=== PATIENT | male | born 1980 | race Caucasian/White ===

== ENCOUNTER 2023-07-26 03:14 | Inpatient (IN) | payer MEDICAID, OTHER, SELFPAY ==
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
--- NOTE | ~2023-07-26 | CT_ITS ---
EXAMINATION: CT CERVICAL SPINE WITHOUT CONTRAST CLINICAL INFORMATION: Subtle lucency at base of odontoid. COMPARISON: Cervical spine radiographs 07/28/2023. TECHNIQUE: Program Manager Environmental Planning images were obtained. CT imaging of the cervical spine was performed without contrast. Data was reformatted into multiplanar images at the acquisition workstation. This CT examination was performed using dose optimization techniques as appropriate, variously including the following: *Automated exposure control *Adjustment of mA and/or kV according to patient size (this includes techniques or standardized protocols for targeted exams where dose is matched to indication/reason for exam; i.e. extremities or head) *Use of iterative reconstruction technique DLP: 332 mGy-cm FINDINGS: Alignment is normal. Vertebral body heights are preserved. No acute cervical spine fracture. No abnormal prevertebral soft tissue swelling. There is no canal compromise. No cord compression. No bony neuroforaminal encroachment. Grossly no pathologically enlarged cervical lymph nodes. Minimal pleural-parenchymal scarring is visualized at the apices of both lungs. CT/CT cervical spine wo IV con IMPRESSION: Unremarkable cervical spine CT.
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
[2023-07-26] MEDS: Nicotine Polacrilex 2 MG GUM 4 MG BUCCAL ×4 (04:30→18:17)
--- NOTE | 2023-07-26 04:30 | PC.NURSE ---
PT requested only 1 nicotine gum, 2mg.
--- NOTE | 2023-07-26 04:46 | PC.ADMIT ---
PT is a 43 year old male with past medical and psychiatric history with ongoing depression and ETOH use, unknown to unit, admitted on CV at 0323 from [facility] on a stretcher accompanied by security and EMS. PT is A+O x4, calm and cooperative during admission and skin/contraband check. PT was brought from [place] to the ED in [place] by his brother Nilton, PT is currently homeless. 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 Per report PT made a suicidal gesture holding kitchen scissors stating he was going to cut or stab self. PT callie is Maggi per report. PT has a diagnose of MDD and ETOH use disorder. Given PT's continual ETOH use, Maggi plans to Section 35 the PT after discharge. PT placed on 15 minute safety checks, belongings charted and locked in closet, treatment plan and safety tool initiated. PT is a current 3 pack/day smoker. PT reports he has been drinking for past 4 years and his children are in foster care. PT also reports smoking marijuana. PT had a Cat Scan at prior hospital, which revealed gastritis, negative for cirrhosis due to PT C/O vomiting blood upon arrival to ED. PT currently resting in bed with eyes closed, will continue to monitor.
[2023-07-26 04:47] VITALS: BMI 19.7
[2023-07-26 06:25] VITALS: BP 122/68; PULSE 80; RESP 16; TEMP 36.8; O2SAT 100
--- NOTE | 2023-07-26 06:42 | PC.NURSE ---
PT T 98.2, P 80, R 16, O2RA 100, BP 122/68, at 0625, PT vomitted in BR toilet x1 at 0645, PT is presenting as anxious, agitated, disorganized.
[2023-07-26 07:53] LABS: Alanine Aminotransferase 13 U/L (0-40); Albumin Level 4.2 g/dL (3.5-5.0); Alkaline Phosphatase 99 U/L (39-117); Anion Gap 12 (12-20); Aspartate Amino Transferase 27 U/L (5-37); Bilirubin Total 0.4 mg/dL (0.0-1.0); Blood Urea Nitrogen 15 mg/dL (9-16); Calcium 9.3 mg/dL (8.4-10.2); Carbon Dioxide 26 mmol/L (22-29); Chloride 105 mmol/L (96-108); Creatinine Clr Calc Pharmacy 112.2; Estimated Glomerular Filt Rate > 60; Glucose Fasting 89 mg/dL (60-99); Potassium 4.1 mmol/L (3.3-5.1); Sodium 139 mmol/L (135-145); Total Protein 7.4 g/dL (6.5-8.0)
[2023-07-26] MEDS: Nicotine 21 MG PATCH.TD24 TRANSDERMA (08:17)
[2023-07-26] MEDS: Folic Acid 1 MG TABLET PO (08:17)
[2023-07-26] MEDS: Thiamine HCL 100 MG TABLET PO (08:17)
[2023-07-26] MEDS: Multivitamin TABLET 1 TAB PO (08:17)
[2023-07-26] MEDS: LORazepam 1 MG TABLET PO (08:23)
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
[2023-07-26] MEDS: hydrOXYzine HCL 25 MG TABLET PO ×2 (11:56→19:46)
[2023-07-26] MEDS: Lidocaine 4 % Patch ADH..PATCH 1 PATCH TRANSDERMA (11:57)
[2023-07-26] MEDS: Famotidine 20 MG TABLET PO ×2 (11:57→21:52)
[2023-07-26 12:10] VITALS: BP 146/98; PULSE 89; RESP 18; O2SAT 99
[2023-07-26] MEDS: Bacitracin Oint 14 GM TUBE 1 APPL TOPICAL (14:51)
[2023-07-26] MEDS: Gabapentin 300 MG CAPSULE PO ×2 (16:00→19:46)
[2023-07-26 18:00] VITALS: BP 140/95; PULSE 80; TEMP 2.6; TEMP 36.7
[2023-07-26] MEDS: traZODone HCL 50 MG TABLET PO (21:52)
[2023-07-26] MEDS: lamoTRIgine 25 MG TABLET PO (21:53)
[2023-07-27] MEDS: Nicotine Polacrilex 2 MG GUM 4 MG BUCCAL (06:27)
[2023-07-27] MEDS: Lidocaine 4 % Patch ADH..PATCH 1 PATCH TRANSDERMA ×3 (06:27→12:39)
[2023-07-27] MEDS: LORazepam 1 MG TABLET PO ×3 (06:27→19:50)
[2023-07-27 08:06] VITALS: BP 137/95; PULSE 99; RESP 16; TEMP 36.4; O2SAT 100
[2023-07-27] MEDS: Multivitamin TABLET 1 TAB PO (08:16)
[2023-07-27] MEDS: Nicotine 21 MG PATCH.TD24 TRANSDERMA (08:16)
[2023-07-27] MEDS: Famotidine 20 MG TABLET PO ×2 (08:16→21:57)
[2023-07-27] MEDS: Gabapentin 300 MG CAPSULE PO ×4 (08:17→21:56)
[2023-07-27] MEDS: Thiamine HCL 100 MG TABLET PO (08:17)
[2023-07-27] MEDS: Folic Acid 1 MG TABLET PO (08:17)
[2023-07-27] MEDS: Bacitracin Oint 14 GM TUBE 1 APPL TOPICAL (08:46)
--- NOTE | 2023-07-27 12:24 | P.PNPSI_ITS ---
Subjective Subjective Date of Service: 07/27/23 Reason For Visit: Vomiting blood/SI Interim History: met with pt; discussed with team pt feeling better; mood better and says SI resolved. 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 aks if gabapentin can be increased in frequency. Mental Status Exam Mental Status Exam Narrative: Pt is alert and oriented; behavior is cooperative, friendly and calm; patient is not in distress; dressed in casual attire, clean shaven, showered; mood is described as better and affect congruent, brighter; eye contact appropriate; Speech is normal rate, volume and prosody and not pressured; no psychomotor agitation/retardation present; thought process is organized and goal directed; Thought content is on lifes struggles; otherwise pertinent to relevant topics and without any delusional content, paranoid ideations or grandiosity; denies any SI/HI. There is no evidence of perceptual disturbance. Patients insight and judgment impaired. Diagnostics Vital Signs (24Hr): Vital Signs - 24 hr 07/26/23 18:00 07/27/23 08:06 Temperature 36.7 F L 97.5 F Pulse Rate 80 99 Respiratory Rate 16 Blood Pressure 140/95 H 137/95 H Pulse Oximetry 100 Oxygen Delivery Method Room Air BMI result Body Mass Index 19.7 Labs 07/26/23 07:18 Labs: Laboratory Results - last 48 hr 07/26/23 07:18 Sodium 139 Potassium 4.1 Chloride 105 Carbon Dioxide 26 Anion Gap 12 BUN 15 Creatinine 0.74 Estim Creat Clear Calc 112.2 Estimated GFR > 60 Fasting Glucose 89 Calcium 9.3 Total Bilirubin 0.4 AST 27 ALT 13 Alkaline Phosphatase 99 Total Protein 7.4 Albumin 4.2 Medications Medications Current Medications Al Hydroxide/Mg Hydroxide (Magnesium Hydrox/Alum Hydrox 30 Ml Oral.Susp) 30 ml PO Q6H PRN PRN Reason: Heartburn/Nausea Bacitracin (Bacitracin Oint 14 Gm Tube) 1 appl TOPICAL BID [facility]; Protocol Last Admin: 07/26/23 22:01 Dose: Not Given Famotidine (Famotidine 20 Mg Tablet) 20 mg PO BID [facility] Last Admin: 07/27/23 08:16 Dose: 20 mg Folic Acid (Folic Acid 1 Mg Tablet) 1 mg PO DAILY [facility] Last Admin: 07/27/23 08:17 Dose: 1 mg Gabapentin (Gabapentin 300 Mg Capsule) 300 mg PO TID [facility] Last Admin: 07/27/23 08:17 Dose: 300 mg Hydroxyzine HCl (Hydroxyzine Hcl 25 Mg Tablet) 25 mg PO Q6H PRN PRN Reason: Anxiety Last Admin: 07/26/23 19:46 Dose: 25 mg Lamotrigine (Lamotrigine 25 Mg Tablet) 25 mg PO BEDTIME [facility] Last Admin: 07/26/23 21:53 Dose: 25 mg Lidocaine (Lidocaine 4 % Patch Adh..Patch) 1 patch TRANSDERMA DAILY PRN; Protocol PRN Reason: back pain Last Admin: 07/27/23 06:27 Dose: 1 patch Lorazepam (Lorazepam 1 Mg Tablet) 1 mg PO Q2H PRN PRN Reason: CIWA 6-10 Last Admin: 07/27/23 06:27 Dose: 1 mg Lorazepam (Lorazepam 1 Mg Tablet) 2 mg PO Q2H PRN PRN Reason: CIWA 11 and above Magnesium Hydroxide (Milk Of Magnesia 30 Ml Oral.Susp) 30 ml PO DAILY PRN PRN Reason: Constipation Multivitamins/Vitamin C (Multivitamin Tablet) 1 tab PO DAILY [facility] Last Admin: 07/27/23 08:16 Dose: 1 tab Nicotine (Nicotine 21 Mg Patch.Td24) 21 mg TRANSDERMA DAILY PRN PRN Reason: smoking cessation Last Admin: 07/27/23 08:16 Dose: 21 mg Nicotine Polacrilex (Nicotine Polacrilex 2 Mg Gum) 4 mg BUCCAL Q2H PRN PRN Reason: Nicotine Cravings Last Admin: 07/27/23 06:27 Dose: 4 mg Olanzapine (Olanzapine 5 Mg Tablet) 5 mg PO TID PRN PRN Reason: agitation Thiamine HCl (Thiamine Hcl 100 Mg Tablet) 100 mg PO DAILY [facility] Last Admin: 07/27/23 08:17 Dose: 100 mg Trazodone HCl (Trazodone Hcl 50 Mg Tablet) 50 mg PO BEDTIME MRX1 PRN PRN Reason: Insomnia Last Admin: 07/26/23 21:52 Dose: 50 mg Allergies Allergies Allergy/AdvReac Type Severity Reaction Status Date / Time acetaminophen AdvReac Unknown Verified 07/26/23 03:50 Assessment & Plan Assessment & Plan (1) MDD (major depressive disorder), recurrent episode, moderate: Status: Acute Code(s): F33.1 - Major depressive disorder, recurrent, moderate (2) Cervicalgia: Status: Acute Code(s): M54.2 - Cervicalgia (3) Right hand pain: Status: Acute Code(s): M79.641 - Pain in right hand Plan Patient is a 43-year-old male with history of depression, alcohol abuse/dependence, who presents for making suicidal statement with a knife in the face of ongoing depression. 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 Patient was on the phone with his brother and niece and made a suicidal comment about cutting himself with scissors. His brother immediately drove up there to help him get treatment at a dual diagnosis program in [place], however upon arriving the bed was no longer available so patient came to the emergency room. He said while here, getting detoxed, he knew that he needed help or might do something unsafe. Patient reports history of hypomanic episodes that last for about 3 days during which time he needs almost no sleep, as talking faster, has lots of energy, spends lots of money he does not really have and on things he does not need and has elevated libido; he says he can only get himself to sleep by starting to drink heavily. Patient also has bouts of depression. Patient has some OCD type symptoms where he frequently counts different things that he sees; he says it can be distracting to conversations and is annoying but does not really limit his function all that much. Discussed diagnosis and possible bipolar disorder and patient agrees to trial of Lamictal as it can help with depression, anxiety, hypomania and OCD; discussed risks/side effects which patient understands and agrees to continue with this medicine. Also discussed gabapentin which he has been on before, for musculoskeletal pain as patient has chronic lower back and neck pain and this also can help with alcohol cravings. hospital course: 07/27 pt feeling better; mood better and says SI resolved. 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 aks if gabapentin can be increased in frequency. Plan: CV Q 15 minute checks CIWA with Ativan p.r.n. Famotidine 20 mg b.i.d. for possible gastritis continue Lamictal 25 mg q.h.s. for combination of mood stability, depression, OCD, anxiety increase to gabapentin 300 mg q.i.d. for musculoskeletal pain and alcohol cravings Patient educated on: diagnosis, medication risk/benefits and substance abuse Informed Consent: understands Reason for continued inpatient stay Substantial Risk for: rapid decompensation Time Spent With Patient Time: Total time managing care of this patient today ____ minutes.
[2023-07-27] MEDS: Naltrexone HCl 50 MG TABLET 25 MG PO (12:35)
[2023-07-27] MEDS: hydrOXYzine HCL 25 MG TABLET PO ×2 (12:37→20:08)
[2023-07-27] MEDS: Ibuprofen 600 MG TABLET PO (16:22)
[2023-07-27] MEDS: traZODone HCL 50 MG TABLET PO (21:56)
[2023-07-27] MEDS: lamoTRIgine 25 MG TABLET PO (21:57)
[2023-07-27 22:00] VITALS: BP 167/94; PULSE 72; RESP 18; TEMP 36.9; O2SAT 100
[2023-07-27 22:25] VITALS: BP 161/94; PULSE 68; RESP 18
[2023-07-27] MEDS: LORazepam 1 MG TABLET 2 MG PO (22:35)
[2023-07-27 23:02] VITALS: BP 145/91; PULSE 69; RESP 18
[2023-07-28 06:00] VITALS: BP 157/88; PULSE 109; TEMP 36.1; O2SAT 100
[2023-07-28] MEDS: LORazepam 1 MG TABLET PO ×2 (06:37→11:05)
[2023-07-28] MEDS: Nicotine Polacrilex 2 MG GUM 4 MG BUCCAL ×2 (06:37→22:07)
[2023-07-28 08:20] LABS: Alanine Aminotransferase 16 U/L (0-40); Albumin Level 4.6 g/dL (3.5-5.0); Alkaline Phosphatase 98 U/L (39-117); Aspartate Amino Transferase 25 U/L (5-37); Bilirubin Direct 0.2 mg/dL (0.0-0.5); Bilirubin Total 0.4 mg/dL (0.0-1.0); Total Protein 8.2 g/dL (6.5-8.0)
[2023-07-28] MEDS: Famotidine 20 MG TABLET PO ×2 (08:40→20:48)
[2023-07-28] MEDS: Multivitamin TABLET 1 TAB PO (08:40)
[2023-07-28] MEDS: Gabapentin 300 MG CAPSULE PO ×4 (08:40→20:48)
[2023-07-28] MEDS: Thiamine HCL 100 MG TABLET PO (08:40)
[2023-07-28] MEDS: Naltrexone HCl 50 MG TABLET 25 MG PO (08:40)
[2023-07-28] MEDS: Folic Acid 1 MG TABLET PO (08:40)
--- NOTE | 2023-07-28 10:16 | HO.PSYCHPN ---
Subjective Subjective Date of Service: 07/28/23 Reason For Visit: Vomiting blood/SI Subjective Notes: Conditional Voluntary Healthcare Proxy: No Guardianship: No Medical Problems Affecting Mental Status: No Interim History: Pt discussed his history and medical concerns. He hopes to enter a program. Review of pain-neck, back, foot- xrays/CAT ordered. Pt will need OP referral to podiatry upon discharge as he reports L Foot with Hammar Toe. Hopes for admit to [facility]. States family has a connection to help him to get admitted. Medication Compliance: Yes Side effects from medications: No Attending Groups: Intermittent Review of Systems Acute medical concerns: No Medical Review of Systems: unchanged Review of Systems Reports neck pain Musculoskeletal: Reports back pain and Reports neck pain Mental Status Exam Mental Status Exam Patient Appearance: Appropriate Patient Orientation: Person, Place, Time and Situation Level of Consciousness: Alert Patient Behavior: Talkative Mood Description: Anxious Affect Description: Anxious Patient Cognition Impaired: No Ability to Follow Directions: Good Speech Pattern: Appropriate and Spontaneous Speech Memory Description: Intact and Episodic Impaired Hallucinations: None Delusions: Not Present Thought Process: Rumination Thought Content: positive for Perseveration Depressive Symptoms: Increased Anxiety and Thoughts of /Suicide (denies) Judgement: Good Diagnostics Vital Signs (24Hr): Vital Signs - 24 hr 07/27/23 22:00 07/27/23 22:25 07/27/23 23:02 Temperature 98.4 F Pulse Rate 72 68 69 Respiratory Rate 18 18 18 Blood Pressure 167/94 H 161/94 H 145/91 H Pulse Oximetry 100 Oxygen Delivery Method Room Air 07/28/23 06:00 Temperature 96.9 F Pulse Rate 109 H Respiratory Rate Blood Pressure 157/88 H Pulse Oximetry 100 Oxygen Delivery Method Room Air BMI result Body Mass Index 19.7 Labs 07/26/23 07:18 Labs: Laboratory Results - last 48 hr 07/28/23 07:53 Total Bilirubin 0.4 Direct Bilirubin 0.2 AST 25 ALT 16 Alkaline Phosphatase 98 Total Protein 8.2 H Albumin 4.6 Imaging Radiology Impressions: ITS Impressions Hand X-Ray 07/26/23 11:31 IMPRESSION: 1. No radiographic evidence of acute fracture. 2. Hardware across the fifth metacarpal are intact. Medications Medications Current Medications Al Hydroxide/Mg Hydroxide (Magnesium Hydrox/Alum Hydrox 30 Ml Oral.Susp) 30 ml PO Q6H PRN PRN Reason: Heartburn/Nausea Bacitracin (Bacitracin Oint 14 Gm Tube) 1 appl TOPICAL BID [facility]; Protocol Last Admin: 07/27/23 22:05 Dose: Not Given Famotidine (Famotidine 20 Mg Tablet) 20 mg PO BID [facility] Last Admin: 07/28/23 08:40 Dose: 20 mg Folic Acid (Folic Acid 1 Mg Tablet) 1 mg PO DAILY [facility] Last Admin: 07/28/23 08:40 Dose: 1 mg Gabapentin (Gabapentin 300 Mg Capsule) 300 mg PO QID [facility] Last Admin: 07/28/23 08:40 Dose: 300 mg Hydroxyzine HCl (Hydroxyzine Hcl 25 Mg Tablet) 25 mg PO Q6H PRN PRN Reason: Anxiety Last Admin: 07/27/23 20:08 Dose: 25 mg Ibuprofen (Ibuprofen 600 Mg Tablet) 600 mg PO Q8H PRN PRN Reason: Pain, Mild (Pain Scale 1-3) Last Admin: 07/27/23 16:22 Dose: 600 mg Lamotrigine (Lamotrigine 25 Mg Tablet) 25 mg PO BEDTIME [facility] Last Admin: 07/27/23 21:57 Dose: 25 mg Lidocaine (Lidocaine 4 % Patch Adh..Patch) 1 patch TRANSDERMA DAILY PRN; Protocol PRN Reason: back pain Last Admin: 07/27/23 06:27 Dose: 1 patch Lidocaine (Lidocaine 4 % Patch Adh..Patch) 1 patch TRANSDERMA DAILY [facility]; Protocol Lorazepam (Lorazepam 1 Mg Tablet) 1 mg PO Q2H PRN PRN Reason: CIWA 6-10 Last Admin: 07/28/23 06:37 Dose: 1 mg Lorazepam (Lorazepam 1 Mg Tablet) 2 mg PO Q2H PRN PRN Reason: CIWA 11 and above Last Admin: 07/27/23 22:35 Dose: 2 mg Magnesium Hydroxide (Milk Of Magnesia 30 Ml Oral.Susp) 30 ml PO DAILY PRN PRN Reason: Constipation Multivitamins/Vitamin C (Multivitamin Tablet) 1 tab PO DAILY [facility] Last Admin: 07/28/23 08:40 Dose: 1 tab Naltrexone HCl (Naltrexone Hcl 50 Mg Tablet) 25 mg PO DAILY [facility] Last Admin: 07/28/23 08:40 Dose: 25 mg Nicotine (Nicotine 21 Mg Patch.Td24) 21 mg TRANSDERMA DAILY PRN PRN Reason: smoking cessation Last Admin: 07/27/23 08:16 Dose: 21 mg Nicotine Polacrilex (Nicotine Polacrilex 2 Mg Gum) 4 mg BUCCAL Q2H PRN PRN Reason: Nicotine Cravings Last Admin: 07/28/23 06:37 Dose: 4 mg Thiamine HCl (Thiamine Hcl 100 Mg Tablet) 100 mg PO DAILY [facility] Last Admin: 07/28/23 08:40 Dose: 100 mg Trazodone HCl (Trazodone Hcl 50 Mg Tablet) 50 mg PO BEDTIME MRX1 PRN PRN Reason: Insomnia Last Admin: 07/27/23 21:56 Dose: 50 mg Allergies Allergies Allergy/AdvReac Type Severity Reaction Status Date / Time acetaminophen AdvReac Unknown Verified 07/26/23 03:50 Assessment & Plan Assessment & Plan (1) MDD (major depressive disorder), recurrent episode, moderate: Status: Acute Code(s): F33.1 - Major depressive disorder, recurrent, moderate (2) Cervicalgia: Status: Acute Code(s): M54.2 - Cervicalgia (3) Right hand pain: Status: Acute Code(s): M79.641 - Pain in right hand Plan Patient is a 43-year-old male with history of depression, alcohol abuse/dependence, who presents for making suicidal statement with a knife in the face of ongoing depression. 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 Patient was on the phone with his brother and niece and made a suicidal comment about cutting himself with scissors. His brother immediately drove up there to help him get treatment at a dual diagnosis program in [place], however upon arriving the bed was no longer available so patient came to the emergency room. He said while here, getting detoxed, he knew that he needed help or might do something unsafe. Patient reports history of hypomanic episodes that last for about 3 days during which time he needs almost no sleep, as talking faster, has lots of energy, spends lots of money he does not really have and on things he does not need and has elevated libido; he says he can only get himself to sleep by starting to drink heavily. Patient also has bouts of depression. Patient has some OCD type symptoms where he frequently counts different things that he sees; he says it can be distracting to conversations and is annoying but does not really limit his function all that much. Discussed diagnosis and possible bipolar disorder and patient agrees to trial of Lamictal as it can help with depression, anxiety, hypomania and OCD; discussed risks/side effects which patient understands and agrees to continue with this medicine. Also discussed gabapentin which he has been on before, for musculoskeletal pain as patient has chronic lower back and neck pain and this also can help with alcohol cravings. hospital course: 07/27 pt feeling better; mood better and says SI resolved. 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 aks if gabapentin can be increased in frequency. 07/28 Continue current plan and regime Reports insomnia- Increase Trazodone at hs to 100 mg Cervical/Lumbar xrays Consulted hospitalist regarding Hammar Toe, pt will need OP podiatry scheduled. Plan: CV Q 15 minute checks CIWA with Ativan p.r.n. Famotidine 20 mg b.i.d. for possible gastritis continue Lamictal 25 mg q.h.s. for combination of mood stability, depression, OCD, anxiety increase to gabapentin 300 mg q.i.d. for musculoskeletal pain and alcohol cravings Informed Consent: understands Reason for continued inpatient stay Substantial Risk for: rapid decompensation Time Spent With Patient Time: Total time managing care of this patient today ____ minutes.
[2023-07-28] MEDS: Lidocaine 4 % Patch ADH..PATCH 1 PATCH TRANSDERMA ×2 (10:57)
[2023-07-28] MEDS: Nicotine 21 MG PATCH.TD24 TRANSDERMA (10:58)
[2023-07-28] MEDS: Ibuprofen 600 MG TABLET PO ×2 (11:05→19:05)
[2023-07-28] MEDS: Bacitracin Oint 14 GM TUBE 1 APPL TOPICAL (11:09)
[2023-07-28] MEDS: hydrOXYzine HCL 25 MG TABLET PO (13:36)
[2023-07-28] MEDS: LORazepam 1 MG TABLET 2 MG PO ×3 (17:04→22:07)
[2023-07-28 19:00] VITALS: BP 147/100; PULSE 94; RESP 16; TEMP 37.3; O2SAT 100
[2023-07-28] MEDS: cloNIDine HCL 0.1 MG TABLET PO (19:27)
[2023-07-28] MEDS: traZODone HCL 100 MG TABLET PO (20:48)
[2023-07-28] MEDS: lamoTRIgine 25 MG TABLET PO (20:48)
[2023-07-29] MEDS: LORazepam 1 MG TABLET PO ×3 (05:00→14:34)
[2023-07-29] MEDS: Nicotine Polacrilex 2 MG GUM 4 MG BUCCAL (05:00)
[2023-07-29] MEDS: Ibuprofen 600 MG TABLET PO ×2 (05:22→14:34)
[2023-07-29 08:00] VITALS: BP 131/97; PULSE 112; RESP 18; TEMP 36.4; O2SAT 98
[2023-07-29] MEDS: Folic Acid 1 MG TABLET PO (08:17)
[2023-07-29] MEDS: Famotidine 20 MG TABLET PO ×2 (08:17→21:09)
[2023-07-29] MEDS: Gabapentin 300 MG CAPSULE PO ×4 (08:17→21:09)
[2023-07-29] MEDS: Thiamine HCL 100 MG TABLET PO (08:17)
[2023-07-29] MEDS: Multivitamin TABLET 1 TAB PO (08:17)
[2023-07-29] MEDS: Naltrexone HCl 50 MG TABLET 25 MG PO (08:20)
[2023-07-29] MEDS: Nicotine 21 MG PATCH.TD24 TRANSDERMA (10:24)
[2023-07-29] MEDS: Lidocaine 4 % Patch ADH..PATCH 1 PATCH TRANSDERMA ×2 (10:25)
[2023-07-29] MEDS: hydrOXYzine HCL 25 MG TABLET PO ×2 (13:00→21:11)
--- NOTE | 2023-07-29 13:52 | HO.PSYCHPN ---
Subjective Subjective Date of Service: 07/29/23 Reason For Visit: Vomiting blood/SI Subjective Notes: Conditional Voluntary Healthcare Proxy: No Guardianship: No Medical Problems Affecting Mental Status: No Interim History: I think I drink to manage depression, decrease pain, mask anxiety. Yes, I have been manic. Talked about feeling stuck in his head, overthinking, fixated on current family situation. Worried that daughters will go to foster care. Their mom is unable to care for them. Focus on his placement. Niece Maggi Verdugo [phone] has been connected with [facility] and he believes she can assist him in admission. Not too accepting of [facility] as I dont really get along with men . senior living goal is to return to [place] to be with his children. Medication Compliance: Yes Side effects from medications: No Attending Groups: Intermittent Review of Systems Acute medical concerns: No Medical Review of Systems: unchanged Review of Systems Review of Systems Yes all other systems are reviewed and are negative Mental Status Exam Mental Status Exam Patient Appearance: Appropriate Patient Orientation: Person, Place, Time and Situation Level of Consciousness: Alert Patient Behavior: Talkative Mood Description: Anxious Affect Description: Anxious Patient Cognition Impaired: No Ability to Follow Directions: Good Speech Pattern: Appropriate and Spontaneous Speech Memory Description: Intact and Episodic Impaired Hallucinations: None Delusions: Not Present Thought Process: Rumination Thought Content: positive for Perseveration Depressive Symptoms: Increased Anxiety and Thoughts of /Suicide (denies) Judgement: Good Diagnostics Vital Signs (24Hr): Vital Signs - 24 hr 07/28/23 19:00 07/29/23 08:00 Temperature 99.1 F 97.5 F Pulse Rate 94 112 H Respiratory Rate 16 18 Blood Pressure 147/100 H 131/97 H Pulse Oximetry 100 98 Oxygen Delivery Method Room Air Room Air BMI result Body Mass Index 19.7 Labs 07/26/23 07:18 Labs: Laboratory Results - last 48 hr 07/28/23 07:53 Total Bilirubin 0.4 Direct Bilirubin 0.2 AST 25 ALT 16 Alkaline Phosphatase 98 Total Protein 8.2 H Albumin 4.6 Imaging Radiology Impressions: ITS Impressions Hand X-Ray 07/26/23 11:31 IMPRESSION: 1. No radiographic evidence of acute fracture. 2. Hardware across the fifth metacarpal are intact. Cervical Spine X-Ray 07/28/23 15:00 IMPRESSION: Subtle lucency involving the left aspect of the base of the odontoid process on the open mouth view. A nondisplaced fracture is not excluded. A cervical spine CT would provide for diagnostic assessment. Lumbar Spine X-Ray 07/28/23 15:00 IMPRESSION: 1. No acute bony abnormality. 2. Degenerative disc disease at L4-L5. 3. Slight retrolisthesis of L4 with respect to L5. Soft Tissue Neck X-Ray 07/28/23 15:00 IMPRESSION: 1. Question soft tissue swelling of the patient's chin. 2. No bony abnormality of the cervical spine. Head CT 07/28/23 15:20 IMPRESSION: No acute intracranial abnormality. Cervical Spine CT 07/29/23 10:09 IMPRESSION: Unremarkable cervical spine CT. Medications Medications Current Medications Al Hydroxide/Mg Hydroxide (Magnesium Hydrox/Alum Hydrox 30 Ml Oral.Susp) 30 ml PO Q6H PRN PRN Reason: Heartburn/Nausea Bacitracin (Bacitracin Oint 14 Gm Tube) 1 appl TOPICAL BID [facility]; Protocol Last Admin: 07/29/23 08:39 Dose: Not Given Famotidine (Famotidine 20 Mg Tablet) 20 mg PO BID [facility] Last Admin: 07/29/23 08:17 Dose: 20 mg Folic Acid (Folic Acid 1 Mg Tablet) 1 mg PO DAILY [facility] Last Admin: 07/29/23 08:17 Dose: 1 mg Gabapentin (Gabapentin 300 Mg Capsule) 300 mg PO QID [facility] Last Admin: 07/29/23 12:58 Dose: 300 mg Hydroxyzine HCl (Hydroxyzine Hcl 25 Mg Tablet) 25 mg PO Q6H PRN PRN Reason: Anxiety Last Admin: 07/29/23 13:00 Dose: 25 mg Ibuprofen (Ibuprofen 600 Mg Tablet) 600 mg PO Q8H PRN PRN Reason: Pain, Mild (Pain Scale 1-3) Last Admin: 07/29/23 05:22 Dose: 600 mg Lamotrigine (Lamotrigine 25 Mg Tablet) 25 mg PO BEDTIME [facility] Last Admin: 07/28/23 20:48 Dose: 25 mg Lidocaine (Lidocaine 4 % Patch Adh..Patch) 1 patch TRANSDERMA DAILY [facility]N; Protocol PRN Reason: back pain Last Admin: 07/29/23 10:25 Dose: 1 patch Lidocaine (Lidocaine 4 % Patch Adh..Patch) 1 patch TRANSDERMA DAILY [facility]; Protocol Last Admin: 07/29/23 10:25 Dose: 1 patch Lorazepam (Lorazepam 1 Mg Tablet) 1 mg PO Q2H PRN PRN Reason: CIWA 6-10 Last Admin: 07/29/23 10:23 Dose: 1 mg Lorazepam (Lorazepam 1 Mg Tablet) 2 mg PO Q2H PRN PRN Reason: CIWA 11 and above Last Admin: 07/28/23 22:07 Dose: 2 mg Magnesium Hydroxide (Milk Of Magnesia 30 Ml Oral.Susp) 30 ml PO DAILY PRN PRN Reason: Constipation Multivitamins/Vitamin C (Multivitamin Tablet) 1 tab PO DAILY [facility] Last Admin: 07/29/23 08:17 Dose: 1 tab Naltrexone HCl (Naltrexone Hcl 50 Mg Tablet) 25 mg PO DAILY [facility] Last Admin: 07/29/23 08:20 Dose: 25 mg Nicotine (Nicotine 21 Mg Patch.Td24) 21 mg TRANSDERMA DAILY PRN PRN Reason: smoking cessation Last Admin: 07/29/23 10:24 Dose: 21 mg Nicotine Polacrilex (Nicotine Polacrilex 2 Mg Gum) 4 mg BUCCAL Q2H PRN PRN Reason: Nicotine Cravings Last Admin: 07/29/23 05:00 Dose: 4 mg Thiamine HCl (Thiamine Hcl 100 Mg Tablet) 100 mg PO DAILY [facility] Last Admin: 07/29/23 08:17 Dose: 100 mg Trazodone HCl (Trazodone Hcl 100 Mg Tablet) 100 mg PO BEDTIME [facility] Last Admin: 07/28/23 20:48 Dose: 100 mg Allergies Allergies Allergy/AdvReac Type Severity Reaction Status Date / Time acetaminophen AdvReac Unknown Verified 07/26/23 03:50 Assessment & Plan Assessment & Plan (1) MDD (major depressive disorder), recurrent episode, moderate: Status: Acute Code(s): F33.1 - Major depressive disorder, recurrent, moderate (2) Cervicalgia: Status: Acute Code(s): M54.2 - Cervicalgia (3) Right hand pain: Status: Acute Code(s): M79.641 - Pain in right hand Plan Patient is a 43-year-old male with history of depression, alcohol abuse/dependence, who presents for making suicidal statement with a knife in the face of ongoing depression. 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 Patient was on the phone with his brother and niece and made a suicidal comment about cutting himself with scissors. His brother immediately drove up there to help him get treatment at a dual diagnosis program in [place], however upon arriving the bed was no longer available so patient came to the emergency room. He said while here, getting detoxed, he knew that he needed help or might do something unsafe. Patient reports history of hypomanic episodes that last for about 3 days during which time he needs almost no sleep, as talking faster, has lots of energy, spends lots of money he does not really have and on things he does not need and has elevated libido; he says he can only get himself to sleep by starting to drink heavily. Patient also has bouts of depression. Patient has some OCD type symptoms where he frequently counts different things that he sees; he says it can be distracting to conversations and is annoying but does not really limit his function all that much. Discussed diagnosis and possible bipolar disorder and patient agrees to trial of Lamictal as it can help with depression, anxiety, hypomania and OCD; discussed risks/side effects which patient understands and agrees to continue with this medicine. Also discussed gabapentin which he has been on before, for musculoskeletal pain as patient has chronic lower back and neck pain and this also can help with alcohol cravings. hospital course: 07/27 pt feeling better; mood better and says SI resolved. 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 aks if gabapentin can be increased in frequency. 07/28 Continue current plan and regime Reports insomnia- Increase Trazodone at hs to 100 mg Cervical/Lumbar xrays Consulted hospitalist regarding Hammar Toe, pt will need OP podiatry scheduled. 07/29 Continue tx Plan: CV Q 15 minute checks CIWA with Ativan p.r.n. Famotidine 20 mg b.i.d. for possible gastritis continue Lamictal 25 mg q.h.s. for combination of mood stability, depression, OCD, anxiety increase to gabapentin 300 mg q.i.d. for musculoskeletal pain and alcohol cravings Patient educated on: therapeutic strategies Informed Consent: understands Reason for continued inpatient stay Substantial Risk for: rapid decompensation Time Spent With Patient Time: Total time managing care of this patient today ____ minutes.
[2023-07-29] MEDS: QUEtiapine Fumarate 50 MG TABLET PO (15:56)
[2023-07-29 18:00] VITALS: BP 141/91; PULSE 87; RESP 18; TEMP 36.4; O2SAT 100
[2023-07-29] MEDS: traZODone HCL 100 MG TABLET PO (21:09)
[2023-07-29] MEDS: lamoTRIgine 25 MG TABLET PO (21:09)
[2023-07-30] MEDS: Ibuprofen 600 MG TABLET PO ×3 (03:29→20:08)
[2023-07-30] MEDS: Nicotine Polacrilex 2 MG GUM 4 MG BUCCAL ×3 (03:29→20:08)
[2023-07-30] MEDS: hydrOXYzine HCL 25 MG TABLET PO (03:29)
[2023-07-30 08:00] VITALS: BP 135/83; PULSE 74; RESP 16; TEMP 36.3; O2SAT 100
[2023-07-30] MEDS: Lidocaine 4 % Patch ADH..PATCH 1 PATCH TRANSDERMA ×2 (08:28)
[2023-07-30] MEDS: Naltrexone HCl 50 MG TABLET 25 MG PO (08:30)
[2023-07-30] MEDS: Multivitamin TABLET 1 TAB PO (08:30)
[2023-07-30] MEDS: Folic Acid 1 MG TABLET PO (08:30)
[2023-07-30] MEDS: Gabapentin 300 MG CAPSULE PO ×4 (08:30→20:03)
[2023-07-30] MEDS: DULoxetine HCl 20 MG CAPSULE.DR PO (08:30)
[2023-07-30] MEDS: Thiamine HCL 100 MG TABLET PO (08:30)
[2023-07-30] MEDS: Famotidine 20 MG TABLET PO ×2 (08:30→20:03)
[2023-07-30] MEDS: Nicotine 21 MG PATCH.TD24 TRANSDERMA (08:38)
[2023-07-30] MEDS: LORazepam 1 MG TABLET PO ×2 (08:38→12:16)
[2023-07-30] MEDS: Bacitracin Oint 14 GM TUBE 1 APPL TOPICAL (08:42)
[2023-07-30] MEDS: QUEtiapine Fumarate 100 MG TABLET PO (13:59)
[2023-07-30] MEDS: chlorproMAZINE HCl 25 MG TABLET 50 MG PO ×3 (14:37→20:04)
[2023-07-30 18:00] VITALS: BP 137/90; PULSE 85; RESP 16; TEMP 36.6; O2SAT 100
--- NOTE | 2023-07-30 19:04 | P.PNPSI_ITS ---
Subjective Subjective Date of Service: 07/30/23 Reason For Visit: Vomiting blood/SI Subjective Notes: Conditional Voluntary Healthcare Proxy: No Guardianship: No Medical Problems Affecting Mental Status: No Interim History: Very difficult day. Pt learned that his daughter made a suicide attempt via cutting in hospital. Pt believes this is because her mother did not reach out to her on her birthday. Chlorpromazine schedule added. Upset, angry, labile. Allowing team support. Medication Compliance: Yes Side effects from medications: No Attending Groups: Intermittent Review of Systems Acute medical concerns: No Medical Review of Systems: unchanged Review of Systems Review of Systems Yes all other systems are reviewed and are negative Mental Status Exam Mental Status Exam Patient Appearance: Appropriate Patient Orientation: Person, Place, Time and Situation Level of Consciousness: Alert Patient Behavior: Talkative Mood Description: Depressed, Anxious and Labile Affect Description: Anxious and Labile Patient Cognition Impaired: No Ability to Follow Directions: Good Speech Pattern: Appropriate and Spontaneous Speech Memory Description: Intact and Episodic Impaired Hallucinations: None Delusions: Not Present Thought Process: Rumination Thought Content: positive for Perseveration Depressive Symptoms: Increased Anxiety and Thoughts of /Suicide (denies) Judgement: Good Diagnostics Vital Signs (24Hr): Vital Signs - 24 hr 07/30/23 08:00 07/30/23 18:00 Temperature 97.3 F 97.8 F Pulse Rate 74 85 Respiratory Rate 16 16 Blood Pressure 135/83 137/90 H Pulse Oximetry 100 100 Oxygen Delivery Method Room Air Room Air BMI result Body Mass Index 19.7 Labs 07/26/23 07:18 Imaging Radiology Impressions: ITS Impressions Hand X-Ray 07/26/23 11:31 IMPRESSION: 1. No radiographic evidence of acute fracture. 2. Hardware across the fifth metacarpal are intact. Cervical Spine X-Ray 07/28/23 15:00 IMPRESSION: Subtle lucency involving the left aspect of the base of the odontoid process on the open mouth view. A nondisplaced fracture is not excluded. A cervical spine CT would provide for diagnostic assessment. Lumbar Spine X-Ray 07/28/23 15:00 IMPRESSION: 1. No acute bony abnormality. 2. Degenerative disc disease at L4-L5. 3. Slight retrolisthesis of L4 with respect to L5. Soft Tissue Neck X-Ray 07/28/23 15:00 IMPRESSION: 1. Question soft tissue swelling of the patient's chin. 2. No bony abnormality of the cervical spine. Head CT 07/28/23 15:20 IMPRESSION: No acute intracranial abnormality. Cervical Spine CT 07/29/23 10:09 IMPRESSION: Unremarkable cervical spine CT. Medications Medications Current Medications Al Hydroxide/Mg Hydroxide (Magnesium Hydrox/Alum Hydrox 30 Ml Oral.Susp) 30 ml PO Q6H PRN PRN Reason: Heartburn/Nausea Bacitracin (Bacitracin Oint 14 Gm Tube) 1 appl TOPICAL BID [facility]; Protocol Last Admin: 07/30/23 08:42 Dose: 1 appl Chlorpromazine HCl (Chlorpromazine Hcl 25 Mg Tablet) 50 mg PO QID [facility] Last Admin: 07/30/23 16:52 Dose: 50 mg Chlorpromazine HCl (Chlorpromazine Hcl 100 Mg Tablet) 100 mg PO BID PRN PRN Reason: severe agitation,violence Famotidine (Famotidine 20 Mg Tablet) 20 mg PO BID [facility] Last Admin: 07/30/23 08:30 Dose: 20 mg Folic Acid (Folic Acid 1 Mg Tablet) 1 mg PO DAILY [facility] Last Admin: 07/30/23 08:30 Dose: 1 mg Gabapentin (Gabapentin 300 Mg Capsule) 300 mg PO QID [facility] Last Admin: 07/30/23 16:51 Dose: 300 mg Hydroxyzine HCl (Hydroxyzine Hcl 25 Mg Tablet) 25 mg PO Q6H PRN PRN Reason: Anxiety Last Admin: 07/30/23 03:29 Dose: 25 mg Ibuprofen (Ibuprofen 600 Mg Tablet) 600 mg PO Q8H PRN PRN Reason: Pain, Mild (Pain Scale 1-3) Last Admin: 07/30/23 12:15 Dose: 600 mg Lamotrigine (Lamotrigine 25 Mg Tablet) 25 mg PO BEDTIME [facility] Last Admin: 07/29/23 21:09 Dose: 25 mg Lidocaine (Lidocaine 4 % Patch Adh..Patch) 1 patch TRANSDERMA DAILY PRN; Protocol PRN Reason: back pain Last Admin: 07/30/23 08:28 Dose: 1 patch Lidocaine (Lidocaine 4 % Patch Adh..Patch) 1 patch TRANSDERMA DAILY [facility]; Protocol Last Admin: 07/30/23 08:28 Dose: 1 patch Lorazepam (Lorazepam 1 Mg Tablet) 1 mg PO Q2H PRN PRN Reason: CIWA 6-10 Last Admin: 07/30/23 12:16 Dose: 1 mg Lorazepam (Lorazepam 1 Mg Tablet) 2 mg PO Q2H PRN PRN Reason: CIWA 11 and above Last Admin: 07/28/23 22:07 Dose: 2 mg Magnesium Hydroxide (Milk Of Magnesia 30 Ml Oral.Susp) 30 ml PO DAILY PRN PRN Reason: Constipation Multivitamins/Vitamin C (Multivitamin Tablet) 1 tab PO DAILY [facility] Last Admin: 07/30/23 08:30 Dose: 1 tab Naltrexone HCl (Naltrexone Hcl 50 Mg Tablet) 25 mg PO DAILY [facility] Last Admin: 07/30/23 08:30 Dose: 25 mg Nicotine (Nicotine 21 Mg Patch.Td24) 21 mg TRANSDERMA DAILY PRN PRN Reason: smoking cessation Last Admin: 07/30/23 08:38 Dose: 21 mg Nicotine Polacrilex (Nicotine Polacrilex 2 Mg Gum) 4 mg BUCCAL Q2H PRN PRN Reason: Nicotine Cravings Last Admin: 07/30/23 08:31 Dose: 4 mg Thiamine HCl (Thiamine Hcl 100 Mg Tablet) 100 mg PO DAILY [facility] Last Admin: 07/30/23 08:30 Dose: 100 mg Trazodone HCl (Trazodone Hcl 100 Mg Tablet) 100 mg PO BEDTIME [facility] Last Admin: 07/29/23 21:09 Dose: 100 mg Allergies Allergies Allergy/AdvReac Type Severity Reaction Status Date / Time acetaminophen AdvReac Unknown Verified 07/26/23 03:50 Assessment & Plan Assessment & Plan (1) MDD (major depressive disorder), recurrent episode, moderate: Status: Acute Code(s): F33.1 - Major depressive disorder, recurrent, moderate (2) Cervicalgia: Status: Acute Code(s): M54.2 - Cervicalgia (3) Right hand pain: Status: Acute Code(s): M79.641 - Pain in right hand Plan Patient is a 43-year-old male with history of depression, alcohol abuse/dependence, who presents for making suicidal statement with a knife in the face of ongoing depression. Patient has been living in [place], sometimes sleeping in a camper, tent, sometimes in a hotel, working construction but drinking heavily, a case of beer at least a day and having depression. Patient was on the phone with his brother and niece and made a suicidal comment about cutting himself with scissors. His brother immediately drove up there to help him get treatment at a dual diagnosis program in [place], however upon arriving the bed was no longer available so patient came to the emergency room. He said while here, getting detoxed, he knew that he needed help or might do something unsafe. Patient reports history of hypomanic episodes that last for about 3 days during which time he needs almost no sleep, as talking faster, has lots of energy, spends lots of money he does not really have and on things he does not need and has elevated libido; he says he can only get himself to sleep by starting to drink heavily. Patient also has bouts of depression. Patient has some OCD type symptoms where he frequently counts different things that he sees; he says it can be distracting to conversations and is annoying but does not really limit his function all that much. Discussed diagnosis and possible bipolar disorder and patient agrees to trial of Lamictal as it can help with depression, anxiety, hypomania and OCD; discussed risks/side effects which patient understands and agrees to continue with this medicine. Also discussed gabapentin which he has been on before, for musculoskeletal pain as patient has chronic lower back and neck pain and this also can help with alcohol cravings. hospital course: 07/27 pt feeling better; mood better and says SI resolved. Wants to get back on Naltrexone (though not vivitrol); showed check writer salesperson his left hammer toe and wants help getting a PCP. aks if gabapentin can be increased in frequency. 07/28 Continue current plan and regime Reports insomnia- Increase Trazodone at hs to 100 mg Cervical/Lumbar xrays Consulted hospitalist regarding Hammar Toe, pt will need OP podiatry scheduled. 07/30- Chlorpromazine 50 mg qid Plan: CV Q 15 minute checks CIWA with Ativan p.r.n. Famotidine 20 mg b.i.d. for possible gastritis continue Lamictal 25 mg q.h.s. for combination of mood stability, depression, OCD, anxiety increase to gabapentin 300 mg q.i.d. for musculoskeletal pain and alcohol cravings Patient educated on: medication risk/benefits and therapeutic strategies Informed Consent: understands Reason for continued inpatient stay Substantial Risk for: rapid decompensation Time Spent With Patient Time: Total time managing care of this patient today ____ minutes.
[2023-07-30] MEDS: traZODone HCL 100 MG TABLET PO (20:03)
[2023-07-30] MEDS: lamoTRIgine 25 MG TABLET PO (20:03)
[2023-07-31] MEDS: hydrOXYzine HCL 25 MG TABLET PO (02:39)
[2023-07-31] MEDS: chlorproMAZINE HCl 100 MG TABLET PO (02:40)
[2023-07-31 08:00] VITALS: BP 125/77; PULSE 97; RESP 16; TEMP 36.3; O2SAT 99
[2023-07-31] MEDS: Naltrexone HCl 50 MG TABLET 25 MG PO (08:05)
[2023-07-31] MEDS: Nicotine Polacrilex 2 MG GUM 4 MG BUCCAL ×3 (08:05→23:47)
[2023-07-31] MEDS: Famotidine 20 MG TABLET PO ×2 (08:05→20:35)
[2023-07-31] MEDS: chlorproMAZINE HCl 25 MG TABLET 50 MG PO ×4 (08:05→20:35)
[2023-07-31] MEDS: Thiamine HCL 100 MG TABLET PO (08:06)
[2023-07-31] MEDS: Ibuprofen 600 MG TABLET PO ×3 (08:06→23:44)
[2023-07-31] MEDS: Folic Acid 1 MG TABLET PO (08:06)
[2023-07-31] MEDS: Gabapentin 300 MG CAPSULE PO ×4 (08:06→20:35)
[2023-07-31] MEDS: Multivitamin TABLET 1 TAB PO (08:06)
[2023-07-31] MEDS: Lidocaine 4 % Patch ADH..PATCH 1 PATCH TRANSDERMA ×2 (09:27→09:28)
[2023-07-31] MEDS: Nicotine 21 MG PATCH.TD24 TRANSDERMA (09:30)
[2023-07-31] MEDS: Bacitracin Oint 14 GM TUBE 1 APPL TOPICAL (09:31)
[2023-07-31] MEDS: LORazepam 1 MG TABLET PO (09:44)
[2023-07-31 12:01] VITALS: BMI 21.1
[2023-07-31] MEDS: Benztropine Mesylate 0.5 MG TABLET PO ×2 (12:12→20:34)
--- NOTE | 2023-07-31 15:26 | P.PNPSI_ITS ---
Subjective Subjective Date of Service: 07/31/23 Reason For Visit: Vomiting blood/SI Subjective Notes: Conditional Voluntary Healthcare Proxy: No Guardianship: No Medical Problems Affecting Mental Status: No Interim History: Talked with sister in law in [place] who reached out to pt's daughter. Daughter called and spoke briefly with pt. He reports she hung up on him when he asked her what happened. CPZ helpful with some hand tremor. Dosage decreased, Benztropine added with results Focused on recovery and program admission. Medication Compliance: Yes Side effects from medications: No Attending Groups: Intermittent Review of Systems Acute medical concerns: No Medical Review of Systems: unchanged Review of Systems Review of Systems Yes all other systems are reviewed and are negative Mental Status Exam Mental Status Exam Patient Appearance: Appropriate Patient Orientation: Person, Place, Time and Situation Level of Consciousness: Alert Patient Behavior: Talkative Mood Description: Depressed, Anxious and Labile Affect Description: Anxious and Labile Patient Cognition Impaired: No Ability to Follow Directions: Good Speech Pattern: Appropriate and Spontaneous Speech Memory Description: Intact and Episodic Impaired Hallucinations: None Delusions: Not Present Thought Process: Rumination Thought Content: positive for Perseveration Depressive Symptoms: Increased Anxiety and Thoughts of /Suicide (denies) Judgement: Good Diagnostics Vital Signs (24Hr): Vital Signs - 24 hr 07/30/23 18:00 07/31/23 08:00 Temperature 97.8 F 97.4 F Pulse Rate 85 97 Respiratory Rate 16 16 Blood Pressure 137/90 H 125/77 Pulse Oximetry 100 99 Oxygen Delivery Method Room Air Room Air BMI result Body Mass Index 21.1 Labs 07/26/23 07:18 Imaging Radiology Impressions: ITS Impressions Hand X-Ray 07/26/23 11:31 IMPRESSION: 1. No radiographic evidence of acute fracture. 2. Hardware across the fifth metacarpal are intact. Cervical Spine X-Ray 07/28/23 15:00 IMPRESSION: Subtle lucency involving the left aspect of the base of the odontoid process on the open mouth view. A nondisplaced fracture is not excluded. A cervical spine CT would provide for diagnostic assessment. Lumbar Spine X-Ray 07/28/23 15:00 IMPRESSION: 1. No acute bony abnormality. 2. Degenerative disc disease at L4-L5. 3. Slight retrolisthesis of L4 with respect to L5. Soft Tissue Neck X-Ray 07/28/23 15:00 IMPRESSION: 1. Question soft tissue swelling of the patient's chin. 2. No bony abnormality of the cervical spine. Head CT 07/28/23 15:20 IMPRESSION: No acute intracranial abnormality. Cervical Spine CT 07/29/23 10:09 IMPRESSION: Unremarkable cervical spine CT. Medications Medications Current Medications Al Hydroxide/Mg Hydroxide (Magnesium Hydrox/Alum Hydrox 30 Ml Oral.Susp) 30 ml PO Q6H PRN PRN Reason: Heartburn/Nausea Bacitracin (Bacitracin Oint 14 Gm Tube) 1 appl TOPICAL BID [facility]; Protocol Last Admin: 07/31/23 09:31 Dose: 1 appl Benztropine Mesylate (Benztropine Mesylate 0.5 Mg Tablet) 0.5 mg PO BID [facility] Chlorpromazine HCl (Chlorpromazine Hcl 25 Mg Tablet) 50 mg PO QID [facility] Last Admin: 07/31/23 12:12 Dose: 50 mg Chlorpromazine HCl (Chlorpromazine Hcl 100 Mg Tablet) 100 mg PO BID PRN PRN Reason: severe agitation,violence Last Admin: 07/31/23 02:40 Dose: 100 mg Famotidine (Famotidine 20 Mg Tablet) 20 mg PO BID [facility] Last Admin: 07/31/23 08:05 Dose: 20 mg Folic Acid (Folic Acid 1 Mg Tablet) 1 mg PO DAILY [facility] Last Admin: 07/31/23 08:06 Dose: 1 mg Gabapentin (Gabapentin 300 Mg Capsule) 300 mg PO QID [facility] Last Admin: 07/31/23 12:12 Dose: 300 mg Hydroxyzine HCl (Hydroxyzine Hcl 25 Mg Tablet) 25 mg PO Q6H PRN PRN Reason: Anxiety Last Admin: 07/31/23 02:39 Dose: 25 mg Ibuprofen (Ibuprofen 600 Mg Tablet) 600 mg PO Q8H PRN PRN Reason: Pain, Mild (Pain Scale 1-3) Last Admin: 07/31/23 08:06 Dose: 600 mg Lamotrigine (Lamotrigine 25 Mg Tablet) 25 mg PO BEDTIME [facility] Last Admin: 07/30/23 20:03 Dose: 25 mg Lidocaine (Lidocaine 4 % Patch Adh..Patch) 1 patch TRANSDERMA DAILY PRN; Protocol PRN Reason: back pain Last Admin: 07/31/23 09:28 Dose: 1 patch Lidocaine (Lidocaine 4 % Patch Adh..Patch) 1 patch TRANSDERMA DAILY [facility]; Protocol Last Admin: 07/31/23 09:27 Dose: 1 patch Lorazepam (Lorazepam 1 Mg Tablet) 1 mg PO Q2H PRN PRN Reason: CIWA 6-10 Last Admin: 07/31/23 09:44 Dose: 1 mg Lorazepam (Lorazepam 1 Mg Tablet) 2 mg PO Q2H PRN PRN Reason: CIWA 11 and above Last Admin: 07/28/23 22:07 Dose: 2 mg Magnesium Hydroxide (Milk Of Magnesia 30 Ml Oral.Susp) 30 ml PO DAILY PRN PRN Reason: Constipation Multivitamins/Vitamin C (Multivitamin Tablet) 1 tab PO DAILY [facility] Last Admin: 07/31/23 08:06 Dose: 1 tab Naltrexone HCl (Naltrexone Hcl 50 Mg Tablet) 25 mg PO DAILY [facility] Last Admin: 07/31/23 08:05 Dose: 25 mg Nicotine (Nicotine 21 Mg Patch.Td24) 21 mg TRANSDERMA DAILY PRN PRN Reason: smoking cessation Last Admin: 07/31/23 09:30 Dose: 21 mg Nicotine Polacrilex (Nicotine Polacrilex 2 Mg Gum) 4 mg BUCCAL Q2H PRN PRN Reason: Nicotine Cravings Last Admin: 07/31/23 08:05 Dose: 4 mg Thiamine HCl (Thiamine Hcl 100 Mg Tablet) 100 mg PO DAILY [facility] Last Admin: 07/31/23 08:06 Dose: 100 mg Trazodone HCl (Trazodone Hcl 100 Mg Tablet) 100 mg PO BEDTIME [facility] Last Admin: 07/30/23 20:03 Dose: 100 mg Allergies Allergies Allergy/AdvReac Type Severity Reaction Status Date / Time acetaminophen AdvReac Unknown Verified 07/26/23 03:50 Assessment & Plan Assessment & Plan (1) MDD (major depressive disorder), recurrent episode, moderate: Status: Acute Code(s): F33.1 - Major depressive disorder, recurrent, moderate (2) Cervicalgia: Status: Acute Code(s): M54.2 - Cervicalgia (3) Right hand pain: Status: Acute Code(s): M79.641 - Pain in right hand Plan Patient is a 43-year-old male with history of depression, alcohol abuse/dependence, who presents for making suicidal statement with a knife in the face of ongoing depression. 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 Patient was on the phone with his brother and niece and made a suicidal comment about cutting himself with scissors. His brother immediately drove up there to help him get treatment at a dual diagnosis program in [place], however upon arriving the bed was no longer available so patient came to the emergency room. He said while here, getting detoxed, he knew that he needed help or might do something unsafe. Patient reports history of hypomanic episodes that last for about 3 days during which time he needs almost no sleep, as talking faster, has lots of energy, spends lots of money he does not really have and on things he does not need and has elevated libido; he says he can only get himself to sleep by starting to drink heavily. Patient also has bouts of depression. Patient has some OCD type symptoms where he frequently counts different things that he sees; he says it can be distracting to conversations and is annoying but does not really limit his function all that much. Discussed diagnosis and possible bipolar disorder and patient agrees to trial of Lamictal as it can help with depression, anxiety, hypomania and OCD; discussed risks/side effects which patient understands and agrees to continue with this medicine. Also discussed gabapentin which he has been on before, for musculoskeletal pain as patient has chronic lower back and neck pain and this also can help with alcohol cravings. hospital course: 07/27 pt feeling better; mood better and says SI resolved. 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 aks if gabapentin can be increased in frequency. 07/28 Continue current plan and regime Reports insomnia- Increase Trazodone at hs to 100 mg Cervical/Lumbar xrays Consulted hospitalist regarding Hammar Toe, pt will need OP podiatry scheduled. 07/31/23 Decrease CPZ to 50 mg bid Benztropine 0.5 mg bid Plan: CV Q 15 minute checks CIWA with Ativan p.r.n. Famotidine 20 mg b.i.d. for possible gastritis continue Lamictal 25 mg q.h.s. for combination of mood stability, depression, OCD, anxiety increase to gabapentin 300 mg q.i.d. for musculoskeletal pain and alcohol cravings Patient educated on: medication risk/benefits and therapeutic strategies Informed Consent: understands Reason for continued inpatient stay Substantial Risk for: rapid decompensation Time Spent With Patient Time: Total time managing care of this patient today ____ minutes.
[2023-07-31 18:00] VITALS: BP 132/97; PULSE 92; RESP 18; TEMP 36.3; O2SAT 99
[2023-07-31] MEDS: traZODone HCL 100 MG TABLET PO (20:34)
[2023-07-31] MEDS: lamoTRIgine 25 MG TABLET PO (20:35)
--- NOTE | 2023-08-01 | ECG_ITS ---
Test Reason : rule out QTc prolongation Blood Pressure : / mmHG Vent. Rate : 078 BPM Atrial Rate : 078 BPM P-R Int : 178 ms QRS Dur : 092 ms QT Int : 376 ms P-R-T Axes : 069 055 049 degrees QTc Int : 428 ms Normal sinus rhythm Normal ECG No previous ECGs available Referred By: Bozena Whiteside Electronically Signed By:Mauri Watkins
[2023-08-01] MEDS: hydrOXYzine HCL 25 MG TABLET PO (06:16)
[2023-08-01 08:01] VITALS: BP 149/90; PULSE 99; RESP 16; TEMP 36.2; O2SAT 99
[2023-08-01] MEDS: chlorproMAZINE HCl 25 MG TABLET 50 MG PO ×2 (08:22→21:08)
[2023-08-01] MEDS: Ibuprofen 600 MG TABLET PO ×4 (08:22→21:32)
[2023-08-01] MEDS: Naltrexone HCl 50 MG TABLET 25 MG PO (08:23)
[2023-08-01] MEDS: Gabapentin 300 MG CAPSULE PO (08:23)
[2023-08-01] MEDS: Multivitamin TABLET 1 TAB PO (08:24)
[2023-08-01] MEDS: Thiamine HCL 100 MG TABLET PO (08:24)
[2023-08-01] MEDS: Famotidine 20 MG TABLET PO ×2 (08:24→21:08)
[2023-08-01] MEDS: Folic Acid 1 MG TABLET PO (08:24)
[2023-08-01] MEDS: Benztropine Mesylate 0.5 MG TABLET PO ×2 (08:24→21:09)
[2023-08-01] MEDS: Lidocaine 4 % Patch ADH..PATCH 1 PATCH TRANSDERMA ×2 (08:36→10:23)
[2023-08-01] MEDS: Nicotine Polacrilex 2 MG GUM 4 MG BUCCAL ×4 (08:37→21:33)
[2023-08-01] MEDS: Nicotine 21 MG PATCH.TD24 TRANSDERMA (09:38)
[2023-08-01] MEDS: Gabapentin 400 MG CAPSULE PO ×3 (12:20→21:09)
[2023-08-01] MEDS: Capsaicin 0.025% Cream 60 GM TUBE 1 APPL TOPICAL ×2 (14:06→21:09)
--- NOTE | 2023-08-01 15:27 | HO.PSYCHPN ---
Subjective Subjective Date of Service: 08/01/23 Reason For Visit: Vomiting blood/SI Subjective Notes: Conditional Voluntary Healthcare Proxy: No Guardianship: No Medical Problems Affecting Mental Status: No (chronic pain) Interim History: Pt reports feeling improved. He has heard from his daughter a few times. Although they are caustic interactions at times, she is talking with him. Review of regime, pain-back, neck is an issue. Capsaicin ordered, ibuprofen timing increased, gabapentin increased. Lamictal titrated to 50 mg. Pt reports regime to be helpful. Still attempting to reach niece for her assistance in admission to [facility]. Checks changed to 15 minute. Medication Compliance: Yes Side effects from medications: No Attending Groups: Yes Review of Systems Acute medical concerns: No Medical Review of Systems: unchanged Review of Systems Reports neck pain Musculoskeletal: Reports back pain and Reports neck pain Mental Status Exam Mental Status Exam Patient Appearance: Appropriate Patient Orientation: Person, Place, Time and Situation Level of Consciousness: Alert Patient Behavior: Talkative Mood Description: Nervous Affect Description: Flat Patient Cognition Impaired: No Ability to Follow Directions: Good Speech Pattern: Appropriate and Spontaneous Speech Memory Description: Intact and Episodic Impaired Hallucinations: None Delusions: Not Present Thought Process: Distracted Thought Content: positive for Circumstantial Depressive Symptoms: Increased Anxiety and Thoughts of /Suicide (denies) Judgement: Good Diagnostics Vital Signs (24Hr): Vital Signs - 24 hr 07/31/23 18:00 08/01/23 08:01 Temperature 97.3 F 97.1 F Pulse Rate 92 99 Respiratory Rate 18 16 Blood Pressure 132/97 H 149/90 H Pulse Oximetry 99 99 Oxygen Delivery Method Room Air Room Air BMI result Body Mass Index 21.1 Labs 07/26/23 07:18 Imaging Radiology Impressions: ITS Impressions Hand X-Ray 07/26/23 11:31 IMPRESSION: 1. No radiographic evidence of acute fracture. 2. Hardware across the fifth metacarpal are intact. Cervical Spine X-Ray 07/28/23 15:00 IMPRESSION: Subtle lucency involving the left aspect of the base of the odontoid process on the open mouth view. A nondisplaced fracture is not excluded. A cervical spine CT would provide for diagnostic assessment. Lumbar Spine X-Ray 07/28/23 15:00 IMPRESSION: 1. No acute bony abnormality. 2. Degenerative disc disease at L4-L5. 3. Slight retrolisthesis of L4 with respect to L5. Soft Tissue Neck X-Ray 07/28/23 15:00 IMPRESSION: 1. Question soft tissue swelling of the patient's chin. 2. No bony abnormality of the cervical spine. Head CT 07/28/23 15:20 IMPRESSION: No acute intracranial abnormality. Cervical Spine CT 07/29/23 10:09 IMPRESSION: Unremarkable cervical spine CT. Medications Medications Current Medications Al Hydroxide/Mg Hydroxide (Magnesium Hydrox/Alum Hydrox 30 Ml Oral.Susp) 30 ml PO Q6H PRN PRN Reason: Heartburn/Nausea Bacitracin (Bacitracin Oint 14 Gm Tube) 1 appl TOPICAL BID [facility]; Protocol Last Admin: 08/01/23 10:36 Dose: Not Given Benztropine Mesylate (Benztropine Mesylate 0.5 Mg Tablet) 0.5 mg PO BID [facility] Last Admin: 08/01/23 08:24 Dose: 0.5 mg Capsaicin (Capsaicin 0.025% Cream 60 Gm Tube) 1 appl TOPICAL QID PRN; Protocol PRN Reason: pain in neck, back Last Admin: 08/01/23 14:06 Dose: 1 appl Chlorpromazine HCl (Chlorpromazine Hcl 100 Mg Tablet) 100 mg PO BID PRN PRN Reason: severe agitation,violence Last Admin: 07/31/23 02:40 Dose: 100 mg Chlorpromazine HCl (Chlorpromazine Hcl 25 Mg Tablet) 50 mg PO BID [facility] Last Admin: 08/01/23 08:22 Dose: 50 mg Famotidine (Famotidine 20 Mg Tablet) 20 mg PO BID [facility] Last Admin: 08/01/23 08:24 Dose: 20 mg Folic Acid (Folic Acid 1 Mg Tablet) 1 mg PO DAILY [facility] Last Admin: 08/01/23 08:24 Dose: 1 mg Gabapentin (Gabapentin 400 Mg Capsule) 400 mg PO QID [facility] Last Admin: 08/01/23 12:20 Dose: 400 mg Hydroxyzine HCl (Hydroxyzine Hcl 25 Mg Tablet) 25 mg PO Q6H PRN PRN Reason: Anxiety Last Admin: 08/01/23 06:16 Dose: 25 mg Ibuprofen (Ibuprofen 600 Mg Tablet) 600 mg PO Q4H PRN PRN Reason: Pain, Mild (Pain Scale 1-3) Last Admin: 08/01/23 12:19 Dose: 600 mg Lamotrigine (Lamotrigine 25 Mg Tablet) 25 mg PO BEDTIME [facility] Last Admin: 07/31/23 20:35 Dose: 25 mg Lidocaine (Lidocaine 4 % Patch Adh..Patch) 1 patch TRANSDERMA DAILY PRN; Protocol PRN Reason: back pain Last Admin: 08/01/23 10:23 Dose: 1 patch Lidocaine (Lidocaine 4 % Patch Adh..Patch) 1 patch TRANSDERMA DAILY [facility]; Protocol Last Admin: 08/01/23 08:36 Dose: 1 patch Lorazepam (Lorazepam 1 Mg Tablet) 1 mg PO Q2H PRN PRN Reason: CIWA 6-10 Last Admin: 07/31/23 09:44 Dose: 1 mg Lorazepam (Lorazepam 1 Mg Tablet) 2 mg PO Q2H PRN PRN Reason: CIWA 11 and above Last Admin: 07/28/23 22:07 Dose: 2 mg Magnesium Hydroxide (Milk Of Magnesia 30 Ml Oral.Susp) 30 ml PO DAILY PRN PRN Reason: Constipation Multivitamins/Vitamin C (Multivitamin Tablet) 1 tab PO DAILY [facility] Last Admin: 08/01/23 08:24 Dose: 1 tab Naltrexone HCl (Naltrexone Hcl 50 Mg Tablet) 25 mg PO DAILY [facility] Last Admin: 08/01/23 08:23 Dose: 25 mg Nicotine (Nicotine 21 Mg Patch.Td24) 21 mg TRANSDERMA DAILY PRN PRN Reason: smoking cessation Last Admin: 08/01/23 09:38 Dose: 21 mg Nicotine Polacrilex (Nicotine Polacrilex 2 Mg Gum) 4 mg BUCCAL Q2H PRN PRN Reason: Nicotine Cravings Last Admin: 08/01/23 14:06 Dose: 4 mg Thiamine HCl (Thiamine Hcl 100 Mg Tablet) 100 mg PO DAILY [facility] Last Admin: 08/01/23 08:24 Dose: 100 mg Trazodone HCl (Trazodone Hcl 100 Mg Tablet) 100 mg PO BEDTIME [facility] Last Admin: 07/31/23 20:34 Dose: 100 mg Allergies Allergies Allergy/AdvReac Type Severity Reaction Status Date / Time acetaminophen AdvReac Unknown Verified 07/26/23 03:50 Assessment & Plan Assessment & Plan (1) MDD (major depressive disorder), recurrent episode, moderate: Status: Acute Code(s): F33.1 - Major depressive disorder, recurrent, moderate (2) Cervicalgia: Status: Acute Code(s): M54.2 - Cervicalgia (3) Right hand pain: Status: Acute Code(s): M79.641 - Pain in right hand Plan Patient is a 43-year-old male with history of depression, alcohol abuse/dependence, who presents for making suicidal statement with a knife in the face of ongoing depression. 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 Patient was on the phone with his brother and niece and made a suicidal comment about cutting himself with scissors. His brother immediately drove up there to help him get treatment at a dual diagnosis program in [place], however upon arriving the bed was no longer available so patient came to the emergency room. He said while here, getting detoxed, he knew that he needed help or might do something unsafe. Patient reports history of hypomanic episodes that last for about 3 days during which time he needs almost no sleep, as talking faster, has lots of energy, spends lots of money he does not really have and on things he does not need and has elevated libido; he says he can only get himself to sleep by starting to drink heavily. Patient also has bouts of depression. Patient has some OCD type symptoms where he frequently counts different things that he sees; he says it can be distracting to conversations and is annoying but does not really limit his function all that much. Discussed diagnosis and possible bipolar disorder and patient agrees to trial of Lamictal as it can help with depression, anxiety, hypomania and OCD; discussed risks/side effects which patient understands and agrees to continue with this medicine. Also discussed gabapentin which he has been on before, for musculoskeletal pain as patient has chronic lower back and neck pain and this also can help with alcohol cravings. hospital course: 07/27 pt feeling better; mood better and says SI resolved. 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 aks if gabapentin can be increased in frequency. 07/28 Continue current plan and regime Reports insomnia- Increase Trazodone at hs to 100 mg Cervical/Lumbar xrays Consulted hospitalist regarding Hammar Toe, pt will need OP podiatry scheduled. 07/31/23 Decrease CPZ to 50 mg bid Benztropine 0.5 mg bid 08/01/23 Increase Gabapentin to 400 mg qid Capsaicin prn for neck and back pain Change timing of ibuprofen to q4h prn with food Increase Lamictal to 50 mg daily CBC, EKG Plan: CV Q 15 minute checks CIWA with Ativan p.r.n. Famotidine 20 mg b.i.d. for possible gastritis continue Lamictal 25 mg q.h.s. for combination of mood stability, depression, OCD, anxiety increase to gabapentin 300 mg q.i.d. for musculoskeletal pain and alcohol cravings Patient educated on: medication risk/benefits and therapeutic strategies Informed Consent: understands Reason for continued inpatient stay Substantial Risk for: rapid decompensation Time Spent With Patient Time: Total time managing care of this patient today ____ minutes.
[2023-08-01] MEDS: LORazepam 1 MG TABLET PO (16:10)
[2023-08-01 17:22] VITALS: BP 158/85; PULSE 99; RESP 16; TEMP 36.3; O2SAT 99
[2023-08-01] MEDS: traZODone HCL 100 MG TABLET PO (21:07)
[2023-08-01] MEDS: lamoTRIgine 25 MG TABLET 50 MG PO (21:08)
[2023-08-01] MEDS: Bacitracin Oint 14 GM TUBE 1 APPL TOPICAL (21:09)
[2023-08-02] MEDS: hydrOXYzine HCL 25 MG TABLET PO ×4 (00:19→20:27)
[2023-08-02] MEDS: Nicotine Polacrilex 2 MG GUM 4 MG BUCCAL ×7 (00:19→21:48)
[2023-08-02 06:00] VITALS: BP 136/81; PULSE 82; RESP 18; TEMP 36.6; O2SAT 100
[2023-08-02] MEDS: Ibuprofen 600 MG TABLET PO ×3 (06:23→15:35)
[2023-08-02] MEDS: Capsaicin 0.025% Cream 60 GM TUBE 1 APPL TOPICAL ×2 (06:31→18:08)
[2023-08-02] MEDS: Naltrexone HCl 50 MG TABLET 25 MG PO (08:19)
[2023-08-02] MEDS: chlorproMAZINE HCl 25 MG TABLET 50 MG PO ×2 (08:19→22:14)
[2023-08-02] MEDS: Benztropine Mesylate 0.5 MG TABLET PO ×2 (08:20→20:28)
[2023-08-02] MEDS: Multivitamin TABLET 1 TAB PO (08:20)
[2023-08-02] MEDS: Famotidine 20 MG TABLET PO ×2 (08:20→20:28)
[2023-08-02] MEDS: Thiamine HCL 100 MG TABLET PO (08:20)
[2023-08-02] MEDS: Gabapentin 400 MG CAPSULE PO ×4 (08:20→20:27)
[2023-08-02] MEDS: Folic Acid 1 MG TABLET PO (09:54)
[2023-08-02] MEDS: Lidocaine 4 % Patch ADH..PATCH 1 PATCH TRANSDERMA ×2 (11:02)
[2023-08-02] MEDS: Nicotine 21 MG PATCH.TD24 TRANSDERMA (11:03)
--- NOTE | 2023-08-02 12:04 | HO.PSYCHPN ---
Subjective Subjective Date of Service: 08/02/23 Reason For Visit: Vomiting blood/SI Interim History: Pt reports feeling improved. Review of regime, pain-back, neck is an issue. Capsaicin ordered, ibuprofen timing increased, gabapentin increased. Lamictal titrated to 50 mg. Pt reports regime to be helpful. Plan is to reach niece for her assistance in admission to [facility]. Checks changed to 15 minute. pt maintaining safety. QTC 428 ms Normal sinus rhythm Normal ECG Medication Compliance: Yes Side effects from medications: No Review of Systems Review of Systems Yes all other systems are reviewed and are negative Reports neck pain Musculoskeletal: Reports back pain and Reports neck pain Mental Status Exam Mental Status Exam Narrative: Pt is alert and oriented; behavior is cooperative, friendly and calm; patient is not in distress; dressed in casual attire, clean shaven, showered; mood is described as better and affect congruent, brighter; eye contact appropriate; Speech is normal rate, volume and prosody and not pressured; no psychomotor agitation/retardation present; thought process is organized and goal directed; Thought content is on lifes struggles; otherwise pertinent to relevant topics and without any delusional content, paranoid ideation or grandiosity; denies any SI/HI. There is no evidence of perceptual disturbance. Patients insight and judgment impaired. Patient Appearance: Appropriate Patient Orientation: Person, Place, Time and Situation Level of Consciousness: Alert Patient Behavior: Talkative Mood Description: Nervous Affect Description: Flat Patient Cognition Impaired: No Ability to Follow Directions: Good Speech Pattern: Appropriate and Spontaneous Speech Memory Description: Intact and Episodic Impaired Diagnostics Vital Signs (24Hr): Vital Signs - 24 hr 08/01/23 17:22 08/02/23 06:00 Temperature 97.3 F 98 F Pulse Rate 99 82 Respiratory Rate 16 18 Blood Pressure 158/85 H 136/81 Pulse Oximetry 99 100 Oxygen Delivery Method Room Air Room Air BMI result Body Mass Index 21.1 Labs 07/26/23 07:18 Imaging Radiology Impressions: ITS Impressions Hand X-Ray 07/26/23 11:31 IMPRESSION: 1. No radiographic evidence of acute fracture. 2. Hardware across the fifth metacarpal are intact. Cervical Spine X-Ray 07/28/23 15:00 IMPRESSION: Subtle lucency involving the left aspect of the base of the odontoid process on the open mouth view. A nondisplaced fracture is not excluded. A cervical spine CT would provide for diagnostic assessment. Lumbar Spine X-Ray 07/28/23 15:00 IMPRESSION: 1. No acute bony abnormality. 2. Degenerative disc disease at L4-L5. 3. Slight retrolisthesis of L4 with respect to L5. Soft Tissue Neck X-Ray 07/28/23 15:00 IMPRESSION: 1. Question soft tissue swelling of the patient's chin. 2. No bony abnormality of the cervical spine. Head CT 07/28/23 15:20 IMPRESSION: No acute intracranial abnormality. Cervical Spine CT 07/29/23 10:09 IMPRESSION: Unremarkable cervical spine CT. Medications Medications Current Medications Al Hydroxide/Mg Hydroxide (Magnesium Hydrox/Alum Hydrox 30 Ml Oral.Susp) 30 ml PO Q6H PRN PRN Reason: Heartburn/Nausea Bacitracin (Bacitracin Oint 14 Gm Tube) 1 appl TOPICAL BID [facility]; Protocol Last Admin: 08/02/23 09:55 Dose: Not Given Benztropine Mesylate (Benztropine Mesylate 0.5 Mg Tablet) 0.5 mg PO BID [facility] Last Admin: 08/02/23 08:20 Dose: 0.5 mg Capsaicin (Capsaicin 0.025% Cream 60 Gm Tube) 1 appl TOPICAL QID PRN; Protocol PRN Reason: pain in neck, back Last Admin: 08/02/23 06:31 Dose: 1 appl Chlorpromazine HCl (Chlorpromazine Hcl 100 Mg Tablet) 100 mg PO BID PRN PRN Reason: severe agitation,violence Last Admin: 07/31/23 02:40 Dose: 100 mg Chlorpromazine HCl (Chlorpromazine Hcl 25 Mg Tablet) 50 mg PO BID [facility] Last Admin: 08/02/23 08:19 Dose: 50 mg Famotidine (Famotidine 20 Mg Tablet) 20 mg PO BID [facility] Last Admin: 08/02/23 08:20 Dose: 20 mg Folic Acid (Folic Acid 1 Mg Tablet) 1 mg PO DAILY [facility] Last Admin: 08/02/23 09:54 Dose: 1 mg Gabapentin (Gabapentin 400 Mg Capsule) 400 mg PO QID [facility] Last Admin: 08/02/23 08:20 Dose: 400 mg Hydroxyzine HCl (Hydroxyzine Hcl 25 Mg Tablet) 25 mg PO Q6H PRN PRN Reason: Anxiety Last Admin: 08/02/23 06:29 Dose: 25 mg Ibuprofen (Ibuprofen 600 Mg Tablet) 600 mg PO Q4H PRN PRN Reason: Pain, Mild (Pain Scale 1-3) Last Admin: 08/02/23 11:06 Dose: 600 mg Lamotrigine (Lamotrigine 25 Mg Tablet) 50 mg PO BEDTIME [facility] Last Admin: 08/01/23 21:08 Dose: 50 mg Lidocaine (Lidocaine 4 % Patch Adh..Patch) 1 patch TRANSDERMA DAILY PRN; Protocol PRN Reason: back pain Last Admin: 08/02/23 11:02 Dose: 1 patch Lidocaine (Lidocaine 4 % Patch Adh..Patch) 1 patch TRANSDERMA DAILY [facility]; Protocol Last Admin: 08/02/23 11:02 Dose: 1 patch Lorazepam (Lorazepam 1 Mg Tablet) 1 mg PO Q2H PRN PRN Reason: CIWA 6-10 Last Admin: 08/01/23 16:10 Dose: 1 mg Lorazepam (Lorazepam 1 Mg Tablet) 2 mg PO Q2H PRN PRN Reason: CIWA 11 and above Last Admin: 07/28/23 22:07 Dose: 2 mg Magnesium Hydroxide (Milk Of Magnesia 30 Ml Oral.Susp) 30 ml PO DAILY PRN PRN Reason: Constipation Multivitamins/Vitamin C (Multivitamin Tablet) 1 tab PO DAILY [facility] Last Admin: 08/02/23 08:20 Dose: 1 tab Naltrexone HCl (Naltrexone Hcl 50 Mg Tablet) 25 mg PO DAILY [facility] Last Admin: 08/02/23 08:19 Dose: 25 mg Nicotine (Nicotine 21 Mg Patch.Td24) 21 mg TRANSDERMA DAILY PRN PRN Reason: smoking cessation Last Admin: 08/02/23 11:03 Dose: 21 mg Nicotine Polacrilex (Nicotine Polacrilex 2 Mg Gum) 4 mg BUCCAL Q2H PRN PRN Reason: Nicotine Cravings Last Admin: 08/02/23 11:02 Dose: 4 mg Thiamine HCl (Thiamine Hcl 100 Mg Tablet) 100 mg PO DAILY [facility] Last Admin: 08/02/23 08:20 Dose: 100 mg Trazodone HCl (Trazodone Hcl 100 Mg Tablet) 100 mg PO BEDTIME [facility] Last Admin: 08/01/23 21:07 Dose: 100 mg Allergies Allergies Allergy/AdvReac Type Severity Reaction Status Date / Time acetaminophen AdvReac Unknown Verified 07/26/23 03:50 Assessment & Plan Assessment & Plan (1) MDD (major depressive disorder), recurrent episode, moderate: Status: Acute Code(s): F33.1 - Major depressive disorder, recurrent, moderate (2) Cervicalgia: Status: Acute Code(s): M54.2 - Cervicalgia (3) Right hand pain: Status: Acute Code(s): M79.641 - Pain in right hand Plan Patient is a 43-year-old male with history of depression, alcohol abuse/dependence, who presents for making suicidal statement with a knife in the face of ongoing depression. 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 Patient was on the phone with his brother and niece and made a suicidal comment about cutting himself with scissors. His brother immediately drove up there to help him get treatment at a dual diagnosis program in [place], however upon arriving the bed was no longer available so patient came to the emergency room. He said while here, getting detoxed, he knew that he needed help or might do something unsafe. Patient reports history of hypomanic episodes that last for about 3 days during which time he needs almost no sleep, as talking faster, has lots of energy, spends lots of money he does not really have and on things he does not need and has elevated libido; he says he can only get himself to sleep by starting to drink heavily. Patient also has bouts of depression. Patient has some OCD type symptoms where he frequently counts different things that he sees; he says it can be distracting to conversations and is annoying but does not really limit his function all that much. Discussed diagnosis and possible bipolar disorder and patient agrees to trial of Lamictal as it can help with depression, anxiety, hypomania and OCD; discussed risks/side effects which patient understands and agrees to continue with this medicine. Also discussed gabapentin which he has been on before, for musculoskeletal pain as patient has chronic lower back and neck pain and this also can help with alcohol cravings. hospital course: 07/27 pt feeling better; mood better and says SI resolved. 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 aks if gabapentin can be increased in frequency. 07/28 Continue current plan and regime Reports insomnia- Increase Trazodone at hs to 100 mg Cervical/Lumbar xrays Consulted hospitalist regarding Hammar Toe, pt will need OP podiatry scheduled. 07/31/23 Decrease CPZ to 50 mg bid Benztropine 0.5 mg bid 08/01/23 Increase Gabapentin to 400 mg qid Capsaicin prn for neck and back pain Change timing of ibuprofen to q4h prn with food Increase Lamictal to 50 mg daily CBC, EKG 08/02 continue treatment plan Plan: CV Q 15 minute checks CIWA with Ativan p.r.n. Famotidine 20 mg b.i.d. for possible gastritis continue Lamictal 25 mg q.h.s. for combination of mood stability, depression, OCD, anxiety increase to gabapentin 300 mg q.i.d. for musculoskeletal pain and alcohol cravings Patient educated on: therapeutic strategies Informed Consent: further education needed Reason for continued inpatient stay Substantial Risk for: harm to self and inability to function Time Spent With Patient Time: Total time managing care of this patient today ____ minutes.
[2023-08-02 18:00] VITALS: BP 125/80; PULSE 67; RESP 16; TEMP 36.6; O2SAT 100
[2023-08-02] MEDS: chlorproMAZINE HCl 100 MG TABLET PO (18:58)
[2023-08-02] MEDS: traZODone HCL 100 MG TABLET PO (20:28)
[2023-08-02] MEDS: lamoTRIgine 25 MG TABLET 50 MG PO (20:28)
[2023-08-02] MEDS: Bacitracin Oint 14 GM TUBE 1 APPL TOPICAL (20:29)
[2023-08-03] MEDS: Gabapentin 400 MG CAPSULE PO ×4 (06:43→20:25)
[2023-08-03] MEDS: Ibuprofen 600 MG TABLET PO ×3 (06:43→20:28)
[2023-08-03] MEDS: Nicotine Polacrilex 2 MG GUM 4 MG BUCCAL ×5 (06:44→20:28)
[2023-08-03 08:00] VITALS: BP 118/67; PULSE 88; RESP 18; TEMP 36.6; O2SAT 99
[2023-08-03] MEDS: Folic Acid 1 MG TABLET PO (08:21)
[2023-08-03] MEDS: Famotidine 20 MG TABLET PO ×2 (08:21→22:15)
[2023-08-03] MEDS: Multivitamin TABLET 1 TAB PO (08:21)
[2023-08-03] MEDS: Thiamine HCL 100 MG TABLET PO (08:21)
[2023-08-03] MEDS: Benztropine Mesylate 0.5 MG TABLET PO ×2 (08:21→21:09)
[2023-08-03] MEDS: Naltrexone HCl 50 MG TABLET 25 MG PO (08:21)
[2023-08-03] MEDS: chlorproMAZINE HCl 25 MG TABLET 50 MG PO ×3 (08:21→23:35)
--- NOTE | 2023-08-03 10:07 | HO.PSYCHPN ---
Subjective Subjective Date of Service: 08/03/23 Reason For Visit: Vomiting blood/SI Interim History: pt reports he thinks he has a tremor and body shake since taking the Thorazine; +1 bilateral hand/arm tremor noted. Agreed to reduce PRN dose of thorazine and continue with scheduled; He also learned his 12 yo daughter made a suicide attempt while inpatient in [place]; last night his daughter called and he missed the phone call and was very upset; he is worried about her; staff assured him they would get him if she calls again. EKG showed NS and QTC 428 Medication Compliance: Yes Side effects from medications: Yes (tremor) Attending Groups: No Review of Systems Acute medical concerns: No Medical Review of Systems: unchanged Review of Systems Review of Systems no changes Yes all other systems are reviewed and are negative Reports neck pain Musculoskeletal: Reports back pain and Reports neck pain Mental Status Exam Mental Status Exam Narrative: Pt is alert and oriented; behavior is cooperative, friendly and calm; patient is not in distress; dressed in casual attire, clean shaven, showered; mood is described as better and affect congruent, brighter; eye contact appropriate; Speech is normal rate, volume and prosody and not pressured; no psychomotor agitation/retardation present; thought process is organized and goal directed; Thought content is on lifes struggles; otherwise pertinent to relevant topics and without any delusional content, paranoid ideation or grandiosity; denies any SI/HI. There is no evidence of perceptual disturbance. Patients insight and judgment impaired. Patient Appearance: Appropriate Patient Orientation: Person, Place, Time and Situation Level of Consciousness: Alert Patient Behavior: Talkative Mood Description: Nervous Affect Description: Flat Patient Cognition Impaired: No Ability to Follow Directions: Good Speech Pattern: Appropriate and Spontaneous Speech Memory Description: Intact and Episodic Impaired Diagnostics Vital Signs (24Hr): Vital Signs - 24 hr 08/02/23 18:00 08/03/23 08:00 Temperature 98 F 98 F Pulse Rate 67 88 Respiratory Rate 16 18 Blood Pressure 125/80 118/67 Pulse Oximetry 100 99 Oxygen Delivery Method Room Air Room Air BMI result Body Mass Index 21.1 Labs 07/26/23 07:18 Imaging Radiology Impressions: ITS Impressions Hand X-Ray 07/26/23 11:31 IMPRESSION: 1. No radiographic evidence of acute fracture. 2. Hardware across the fifth metacarpal are intact. Cervical Spine X-Ray 07/28/23 15:00 IMPRESSION: Subtle lucency involving the left aspect of the base of the odontoid process on the open mouth view. A nondisplaced fracture is not excluded. A cervical spine CT would provide for diagnostic assessment. Lumbar Spine X-Ray 07/28/23 15:00 IMPRESSION: 1. No acute bony abnormality. 2. Degenerative disc disease at L4-L5. 3. Slight retrolisthesis of L4 with respect to L5. Soft Tissue Neck X-Ray 07/28/23 15:00 IMPRESSION: 1. Question soft tissue swelling of the patient's chin. 2. No bony abnormality of the cervical spine. Head CT 07/28/23 15:20 IMPRESSION: No acute intracranial abnormality. Cervical Spine CT 07/29/23 10:09 IMPRESSION: Unremarkable cervical spine CT. Medications Medications Current Medications Al Hydroxide/Mg Hydroxide (Magnesium Hydrox/Alum Hydrox 30 Ml Oral.Susp) 30 ml PO Q6H PRN PRN Reason: Heartburn/Nausea Bacitracin (Bacitracin Oint 14 Gm Tube) 1 appl TOPICAL BID [facility]; Protocol Last Admin: 08/03/23 08:23 Dose: Not Given Benztropine Mesylate (Benztropine Mesylate 0.5 Mg Tablet) 0.5 mg PO BID [facility] Last Admin: 08/03/23 08:21 Dose: 0.5 mg Capsaicin (Capsaicin 0.025% Cream 60 Gm Tube) 1 appl TOPICAL QID PRN; Protocol PRN Reason: pain in neck, back Last Admin: 08/02/23 18:08 Dose: 1 appl Chlorpromazine HCl (Chlorpromazine Hcl 25 Mg Tablet) 50 mg PO BID [facility] Last Admin: 08/03/23 08:21 Dose: 50 mg Chlorpromazine HCl (Chlorpromazine Hcl 25 Mg Tablet) 50 mg PO BID PRN PRN Reason: severe agitation,violence Famotidine (Famotidine 20 Mg Tablet) 20 mg PO BID [facility] Last Admin: 08/03/23 08:21 Dose: 20 mg Folic Acid (Folic Acid 1 Mg Tablet) 1 mg PO DAILY [facility] Last Admin: 08/03/23 08:21 Dose: 1 mg Gabapentin (Gabapentin 400 Mg Capsule) 400 mg PO QID [facility] Last Admin: 08/03/23 06:43 Dose: 400 mg Hydroxyzine HCl (Hydroxyzine Hcl 25 Mg Tablet) 25 mg PO Q6H PRN PRN Reason: Anxiety Last Admin: 08/02/23 20:27 Dose: 25 mg Ibuprofen (Ibuprofen 600 Mg Tablet) 600 mg PO Q4H PRN PRN Reason: Pain, Mild (Pain Scale 1-3) Last Admin: 08/03/23 06:43 Dose: 600 mg Lamotrigine (Lamotrigine 25 Mg Tablet) 50 mg PO BEDTIME [facility] Last Admin: 08/02/23 20:28 Dose: 50 mg Lidocaine (Lidocaine 4 % Patch Adh..Patch) 1 patch TRANSDERMA DAILY PRN; Protocol PRN Reason: back pain Last Admin: 08/02/23 11:02 Dose: 1 patch Lidocaine (Lidocaine 4 % Patch Adh..Patch) 1 patch TRANSDERMA DAILY [facility]; Protocol Last Admin: 08/03/23 08:30 Dose: Not Given Magnesium Hydroxide (Milk Of Magnesia 30 Ml Oral.Susp) 30 ml PO DAILY PRN PRN Reason: Constipation Multivitamins/Vitamin C (Multivitamin Tablet) 1 tab PO DAILY [facility] Last Admin: 08/03/23 08:21 Dose: 1 tab Naltrexone HCl (Naltrexone Hcl 50 Mg Tablet) 25 mg PO DAILY [facility] Last Admin: 08/03/23 08:21 Dose: 25 mg Nicotine (Nicotine 21 Mg Patch.Td24) 21 mg TRANSDERMA DAILY PRN PRN Reason: smoking cessation Last Admin: 08/02/23 11:03 Dose: 21 mg Nicotine Polacrilex (Nicotine Polacrilex 2 Mg Gum) 4 mg BUCCAL Q2H PRN PRN Reason: Nicotine Cravings Last Admin: 08/03/23 06:44 Dose: 4 mg Thiamine HCl (Thiamine Hcl 100 Mg Tablet) 100 mg PO DAILY [facility] Last Admin: 08/03/23 08:21 Dose: 100 mg Trazodone HCl (Trazodone Hcl 100 Mg Tablet) 100 mg PO BEDTIME [facility] Last Admin: 08/02/23 20:28 Dose: 100 mg Allergies Allergies Allergy/AdvReac Type Severity Reaction Status Date / Time acetaminophen AdvReac Unknown Verified 07/26/23 03:50 Assessment & Plan Assessment & Plan (1) MDD (major depressive disorder), recurrent episode, moderate: Status: Acute Code(s): F33.1 - Major depressive disorder, recurrent, moderate (2) Cervicalgia: Status: Acute Code(s): M54.2 - Cervicalgia (3) Right hand pain: Status: Acute Code(s): M79.641 - Pain in right hand Plan Patient is a 43-year-old male with history of depression, alcohol abuse/dependence, who presents for making suicidal statement with a knife in the face of ongoing depression. Patient has been living in [place], sometimes sleeping in a camper, tent, sometimes in a hotel, working construction but drinking heavily, a case of beer at least a day and having depression. Patient was on the phone with his brother and niece and made a suicidal comment about cutting himself with scissors. His brother immediately drove up there to help him get treatment at a dual diagnosis program in [place], however upon arriving the bed was no longer available so patient came to the emergency room. He said while here, getting detoxed, he knew that he needed help or might do something unsafe. Patient reports history of hypomanic episodes that last for about 3 days during which time he needs almost no sleep, as talking faster, has lots of energy, spends lots of money he does not really have and on things he does not need and has elevated libido; he says he can only get himself to sleep by starting to drink heavily. Patient also has bouts of depression. Patient has some OCD type symptoms where he frequently counts different things that he sees; he says it can be distracting to conversations and is annoying but does not really limit his function all that much. Discussed diagnosis and possible bipolar disorder and patient agrees to trial of Lamictal as it can help with depression, anxiety, hypomania and OCD; discussed risks/side effects which patient understands and agrees to continue with this medicine. Also discussed gabapentin which he has been on before, for musculoskeletal pain as patient has chronic lower back and neck pain and this also can help with alcohol cravings. hospital course: 07/27 pt feeling better; mood better and says SI resolved. Wants to get back on Naltrexone (though not vivitrol); showed designer/writer his left hammer toe and wants help getting a PCP. aks if gabapentin can be increased in frequency. 07/28 Continue current plan and regime Reports insomnia- Increase Trazodone at hs to 100 mg Cervical/Lumbar xrays Consulted hospitalist regarding Hammar Toe, pt will need OP podiatry scheduled. 07/31/23 Decrease CPZ to 50 mg bid Benztropine 0.5 mg bid 08/01/23 Increase Gabapentin to 400 mg qid Capsaicin prn for neck and back pain Change timing of ibuprofen to q4h prn with food Increase Lamictal to 50 mg daily CBC, EKG 08/02 continue treatment plan 08/03/23 reduced PRN thorazine from 100mg bid prn to 50mg bid prn Plan: CV Q 15 minute checks CIWA with Ativan p.r.n. Famotidine 20 mg b.i.d. for possible gastritis continue Lamictal 25 mg q.h.s. for combination of mood stability, depression, OCD, anxiety increase to gabapentin 300 mg q.i.d. for musculoskeletal pain and alcohol cravings Reason for continued inpatient stay Substantial Risk for: harm to self, inability to function and rapid decompensation Time Spent With Patient Time: Total time managing care of this patient today ____ minutes.
[2023-08-03] MEDS: Nicotine 21 MG PATCH.TD24 TRANSDERMA (10:22)
[2023-08-03] MEDS: Lidocaine 4 % Patch ADH..PATCH 1 PATCH TRANSDERMA ×2 (10:22)
[2023-08-03] MEDS: hydrOXYzine HCL 25 MG TABLET PO ×2 (11:32→20:25)
[2023-08-03] MEDS: Bacitracin Oint 14 GM TUBE 1 APPL TOPICAL (11:33)
[2023-08-03] MEDS: Capsaicin 0.025% Cream 60 GM TUBE 1 APPL TOPICAL ×2 (14:40→20:25)
[2023-08-03 18:00] VITALS: BP 136/81; PULSE 84; RESP 18; TEMP 36.2; O2SAT 100
[2023-08-03] MEDS: diphenhydrAMINE HCl 2 % Cream 28 GM TUBE 1 APPL TOPICAL (18:33)
[2023-08-03] MEDS: traZODone HCL 100 MG TABLET PO (21:08)
[2023-08-03] MEDS: lamoTRIgine 25 MG TABLET 50 MG PO (21:08)
[2023-08-04 08:02] VITALS: BP 114/76; PULSE 100; RESP 16; TEMP 36.4; O2SAT 100
[2023-08-04] MEDS: chlorproMAZINE HCl 25 MG TABLET 50 MG PO ×3 (08:18→20:58)
[2023-08-04] MEDS: Folic Acid 1 MG TABLET PO (08:18)
[2023-08-04] MEDS: Ibuprofen 600 MG TABLET PO ×3 (08:19→21:05)
[2023-08-04] MEDS: Thiamine HCL 100 MG TABLET PO (08:19)
[2023-08-04] MEDS: Naltrexone HCl 50 MG TABLET 25 MG PO (08:19)
[2023-08-04] MEDS: Famotidine 20 MG TABLET PO ×2 (08:19→20:59)
[2023-08-04] MEDS: Lidocaine 4 % Patch ADH..PATCH 1 PATCH TRANSDERMA ×2 (08:20)
[2023-08-04] MEDS: Multivitamin TABLET 1 TAB PO (08:20)
[2023-08-04] MEDS: Benztropine Mesylate 0.5 MG TABLET PO (08:20)
[2023-08-04] MEDS: Nicotine Polacrilex 2 MG GUM 4 MG BUCCAL ×3 (08:20→20:28)
[2023-08-04] MEDS: Gabapentin 400 MG CAPSULE PO ×4 (08:20→20:58)
[2023-08-04] MEDS: Nicotine 21 MG PATCH.TD24 TRANSDERMA (08:25)
[2023-08-04 08:58] LABS: MANUAL DIFF FLAG NO
[2023-08-04 09:02] LABS: Basophils Absolute Auto 0.1 X10*3/uL (0.0-0.2); Basophils Percent Auto 1.4 % (0-2); Eosinophils Absolute Auto 0.4 X10*3/uL (0.0-0.4); Eosinophils Percent Auto 4.5 % (0-4); Hematocrit 42.8 % (42.0-52.0); Hemoglobin 14.8 g/dl (14.0-18.0); Imm Gran Abs Auto 0.03 X10*3/uL (0.00-0.03); Imm Gran Pct Auto 0.4 % (0.0-0.4); Lymphocytes Absolute Auto 1.9 X10*3/uL (1.2-4.9); Lymphocytes Percent Auto 23.6 % (20-40); Mean Corpuscular HGB Conc 34.6 g/dl (31.0-36.0); Mean Corpuscular Hemoglobin 32.8 pg (27.0-33.0); Mean Corpuscular Volume 94.9 fL (80.0-98.0); Mean Platelet Volume 10.1 fL (9.4-12.4); Monocytes Absolute Auto 1.2 X10*3/uL (0.1-1.2); Monocytes Percent Auto 15.2 % (2-11); Neutrophils Absolute Auto 4.4 x10*3/uL (2.0-8.3); Neutrophils Percent Auto 54.9 % (45-73); Platelet Count 354 X10*3/uL (160-400); Red Blood Count 4.51 X10*6/uL (4.60-5.80); Red Cell Distribution Width 12.9 % (11.0-16.0); White Blood Count 7.9 X10*3/uL (4.8-10.8)
[2023-08-04] MEDS: Capsaicin 0.025% Cream 60 GM TUBE 1 APPL TOPICAL ×2 (10:58→20:59)
[2023-08-04] MEDS: diphenhydrAMINE HCl 2 % Cream 28 GM TUBE 1 APPL TOPICAL (11:00)
--- NOTE | 2023-08-04 16:22 | HO.PSYCHPN ---
Subjective Subjective Date of Service: 08/04/23 Reason For Visit: Vomiting blood/SI Subjective Notes: Conditional Voluntary Healthcare Proxy: No Guardianship: No Medical Problems Affecting Mental Status: No Interim History: Pt seen and reviewed with team. Ashutosh Bower has declined pt's application for admission due to SI [employer]PERATOR. Discussed with pt and Faustina Damon [employer] options, jail options, [facility]. Pt will also reach out to contacts for other resources. Review of meds/sx. Will return chlorpromazine to 50 mg tid and benztropine to 1 mg bid. Discussed anxiety with peers, his rationale for not wanting to go to [facility]-as it is all male and reminds him of senior care environment which is a trigger. CIWA discontinued Medication Compliance: Yes Side effects from medications: No Attending Groups: Yes Review of Systems Acute medical concerns: No Medical Review of Systems: unchanged Review of Systems Review of Systems Yes all other systems are reviewed and are negative Mental Status Exam Mental Status Exam Patient Appearance: Appropriate Patient Orientation: Person, Place, Time and Situation Level of Consciousness: Alert Patient Behavior: Talkative and Good Eye Contact Mood Description: Sad and Apprehensive Affect Description: Flat Patient Cognition Impaired: No Ability to Follow Directions: Good Speech Pattern: Spontaneous Speech Memory Description: Intact Hallucinations: None Delusions: Not Present Thought Process: Rumination Thought Content: positive for Circumstantial, positive for Suicidal Ideation (denies) and positive for Homicidal Ideation (denies) Depressive Symptoms: Feelings of Worthlessness Judgement: Good Diagnostics Vital Signs (24Hr): Vital Signs - 24 hr 08/03/23 18:00 08/04/23 08:02 Temperature 97.1 F 97.6 F Pulse Rate 84 100 Respiratory Rate 18 16 Blood Pressure 136/81 114/76 Pulse Oximetry 100 100 Oxygen Delivery Method Room Air Room Air BMI result Body Mass Index 21.1 Labs 08/04/23 08:33 07/26/23 07:18 Labs: Laboratory Results - last 48 hr 08/04/23 08:33 WBC 7.9 RBC 4.51 L Hgb 14.8 Hct 42.8 MCV 94.9 MCH 32.8 MCHC 34.6 RDW 12.9 Plt Count 354 MPV 10.1 Immature Gran % (Auto) 0.4 Neut % (Auto) 54.9 Lymph % (Auto) 23.6 [place] % (Auto) 15.2 H Eos % (Auto) 4.5 H Baso % (Auto) 1.4 Lymph # (Auto) 1.9 [place] # (Auto) 1.2 Eos # (Auto) 0.4 Baso # (Auto) 0.1 Abs Immat Gran (auto) 0.03 Absolute Neuts (auto) 4.4 Absolute Nucleated RBC 0.000 Nucleated RBC % (auto) 0.0 Imaging Radiology Impressions: ITS Impressions Hand X-Ray 07/26/23 11:31 IMPRESSION: 1. No radiographic evidence of acute fracture. 2. Hardware across the fifth metacarpal are intact. Cervical Spine X-Ray 07/28/23 15:00 IMPRESSION: Subtle lucency involving the left aspect of the base of the odontoid process on the open mouth view. A nondisplaced fracture is not excluded. A cervical spine CT would provide for diagnostic assessment. Lumbar Spine X-Ray 07/28/23 15:00 IMPRESSION: 1. No acute bony abnormality. 2. Degenerative disc disease at L4-L5. 3. Slight retrolisthesis of L4 with respect to L5. Soft Tissue Neck X-Ray 07/28/23 15:00 IMPRESSION: 1. Question soft tissue swelling of the patient's chin. 2. No bony abnormality of the cervical spine. Head CT 07/28/23 15:20 IMPRESSION: No acute intracranial abnormality. Cervical Spine CT 07/29/23 10:09 IMPRESSION: Unremarkable cervical spine CT. Medications Medications Current Medications Al Hydroxide/Mg Hydroxide (Magnesium Hydrox/Alum Hydrox 30 Ml Oral.Susp) 30 ml PO Q6H PRN PRN Reason: Heartburn/Nausea Bacitracin (Bacitracin Oint 14 Gm Tube) 1 appl TOPICAL BID [facility]; Protocol Last Admin: 08/04/23 08:35 Dose: Not Given Benztropine Mesylate (Benztropine Mesylate 1 Mg Tablet) 1 mg PO BID [facility] Capsaicin (Capsaicin 0.025% Cream 60 Gm Tube) 1 appl TOPICAL QID PRN; Protocol PRN Reason: pain in neck, back Last Admin: 08/04/23 10:58 Dose: 1 appl Chlorpromazine HCl (Chlorpromazine Hcl 25 Mg Tablet) 50 mg PO BID PRN PRN Reason: severe agitation,violence Last Admin: 08/03/23 23:35 Dose: 50 mg Chlorpromazine HCl (Chlorpromazine Hcl 25 Mg Tablet) 50 mg PO TID [facility] Last Admin: 08/04/23 15:40 Dose: 50 mg Clotrimazole (Clotrimazole 1 % Cream 15 Gm Tube) 1 appl TOPICAL BID [facility]; Protocol Famotidine (Famotidine 20 Mg Tablet) 20 mg PO BID [facility] Last Admin: 08/04/23 08:19 Dose: 20 mg Folic Acid (Folic Acid 1 Mg Tablet) 1 mg PO DAILY [facility] Last Admin: 08/04/23 08:18 Dose: 1 mg Gabapentin (Gabapentin 400 Mg Capsule) 400 mg PO QID [facility] Last Admin: 08/04/23 16:17 Dose: 400 mg Hydroxyzine HCl (Hydroxyzine Hcl 25 Mg Tablet) 25 mg PO Q6H PRN PRN Reason: Anxiety Last Admin: 08/03/23 20:25 Dose: 25 mg Ibuprofen (Ibuprofen 600 Mg Tablet) 600 mg PO Q4H PRN PRN Reason: Pain, Mild (Pain Scale 1-3) Last Admin: 08/04/23 16:16 Dose: 600 mg Lamotrigine (Lamotrigine 25 Mg Tablet) 50 mg PO BEDTIME [facility] Last Admin: 08/03/23 21:08 Dose: 50 mg Lidocaine (Lidocaine 4 % Patch Adh..Patch) 1 patch TRANSDERMA DAILY PRN; Protocol PRN Reason: back pain Last Admin: 08/04/23 08:20 Dose: 1 patch Lidocaine (Lidocaine 4 % Patch Adh..Patch) 1 patch TRANSDERMA DAILY [facility]; Protocol Last Admin: 08/04/23 08:20 Dose: 1 patch Magnesium Hydroxide (Milk Of Magnesia 30 Ml Oral.Susp) 30 ml PO DAILY PRN PRN Reason: Constipation Multivitamins/Vitamin C (Multivitamin Tablet) 1 tab PO DAILY [facility] Last Admin: 08/04/23 08:20 Dose: 1 tab Naltrexone HCl (Naltrexone Hcl 50 Mg Tablet) 25 mg PO DAILY [facility] Last Admin: 08/04/23 08:19 Dose: 25 mg Nicotine (Nicotine 21 Mg Patch.Td24) 21 mg TRANSDERMA DAILY PRN PRN Reason: smoking cessation Last Admin: 08/04/23 08:25 Dose: 21 mg Nicotine Polacrilex (Nicotine Polacrilex 2 Mg Gum) 4 mg BUCCAL Q2H PRN PRN Reason: Nicotine Cravings Last Admin: 08/04/23 12:06 Dose: 4 mg Thiamine HCl (Thiamine Hcl 100 Mg Tablet) 100 mg PO DAILY [facility] Last Admin: 08/04/23 08:19 Dose: 100 mg Trazodone HCl (Trazodone Hcl 100 Mg Tablet) 100 mg PO BEDTIME [facility] Last Admin: 08/03/23 21:08 Dose: 100 mg Zinc Acetate/Diphenhydramine (Diphenhydramine Hcl 2 % Cream 28 Gm Tube) 1 appl TOPICAL QID PRN; Protocol PRN Reason: itching Last Admin: 08/04/23 11:00 Dose: 1 appl Allergies Allergies Allergy/AdvReac Type Severity Reaction Status Date / Time acetaminophen AdvReac Unknown Verified 07/26/23 03:50 Assessment & Plan Assessment & Plan (1) MDD (major depressive disorder), recurrent episode, moderate: Status: Acute Code(s): F33.1 - Major depressive disorder, recurrent, moderate (2) Cervicalgia: Status: Acute Code(s): M54.2 - Cervicalgia (3) Right hand pain: Status: Acute Code(s): M79.641 - Pain in right hand Plan Patient is a 43-year-old male with history of depression, alcohol abuse/dependence, who presents for making suicidal statement with a knife in the face of ongoing depression. 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 Patient was on the phone with his brother and niece and made a suicidal comment about cutting himself with scissors. His brother immediately drove up there to help him get treatment at a dual diagnosis program in [place], however upon arriving the bed was no longer available so patient came to the emergency room. He said while here, getting detoxed, he knew that he needed help or might do something unsafe. Patient reports history of hypomanic episodes that last for about 3 days during which time he needs almost no sleep, as talking faster, has lots of energy, spends lots of money he does not really have and on things he does not need and has elevated libido; he says he can only get himself to sleep by starting to drink heavily. Patient also has bouts of depression. Patient has some OCD type symptoms where he frequently counts different things that he sees; he says it can be distracting to conversations and is annoying but does not really limit his function all that much. Discussed diagnosis and possible bipolar disorder and patient agrees to trial of Lamictal as it can help with depression, anxiety, hypomania and OCD; discussed risks/side effects which patient understands and agrees to continue with this medicine. Also discussed gabapentin which he has been on before, for musculoskeletal pain as patient has chronic lower back and neck pain and this also can help with alcohol cravings. hospital course: 07/27 pt feeling better; mood better and says SI resolved. 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 aks if gabapentin can be increased in frequency. 07/28 Continue current plan and regime Reports insomnia- Increase Trazodone at hs to 100 mg Cervical/Lumbar xrays Consulted hospitalist regarding Hammar Toe, pt will need OP podiatry scheduled. 07/31/23 Decrease CPZ to 50 mg bid Benztropine 0.5 mg bid 08/01/23 Increase Gabapentin to 400 mg qid Capsaicin prn for neck and back pain Change timing of ibuprofen to q4h prn with food Increase Lamictal to 50 mg daily CBC, EKG 08/02 continue treatment plan 08/03/23 reduced PRN thorazine from 100mg bid prn to 50mg bid prn 08/04/23 Increase chlorpromazine to 50 mg tid Increase benztropine to 1 mg bid. Discontinue CIWA Plan: CV Q 15 minute checks CIWA with Ativan p.r.n. Famotidine 20 mg b.i.d. for possible gastritis continue Lamictal 25 mg q.h.s. for combination of mood stability, depression, OCD, anxiety increase to gabapentin 300 mg q.i.d. for musculoskeletal pain and alcohol cravings Patient educated on: therapeutic strategies Informed Consent: further education needed Reason for continued inpatient stay Substantial Risk for: rapid decompensation Time Spent With Patient Time: Total time managing care of this patient today ____ minutes.
[2023-08-04 18:00] VITALS: BP 138/92; PULSE 90; RESP 16; TEMP 36.3; O2SAT 98
[2023-08-04] MEDS: traZODone HCL 100 MG TABLET PO (20:57)
[2023-08-04] MEDS: lamoTRIgine 25 MG TABLET 50 MG PO (20:58)
[2023-08-04] MEDS: Benztropine Mesylate 1 MG TABLET PO (20:59)
[2023-08-04] MEDS: Bacitracin Oint 14 GM TUBE 1 APPL TOPICAL (21:03)
[2023-08-04] MEDS: Clotrimazole 1 % Cream 15 GM TUBE 1 APPL TOPICAL (21:03)
[2023-08-04 21:22] VITALS: BP 128/77; PULSE 80
[2023-08-05] MEDS: Ibuprofen 600 MG TABLET PO ×4 (04:41→20:19)
[2023-08-05] MEDS: hydrOXYzine HCL 25 MG TABLET PO ×2 (04:41→11:14)
[2023-08-05 08:08] VITALS: BP 116/73; PULSE 86; RESP 16; TEMP 36.9; O2SAT 98
[2023-08-05] MEDS: Nicotine 21 MG PATCH.TD24 TRANSDERMA (08:22)
[2023-08-05] MEDS: Naltrexone HCl 50 MG TABLET 25 MG PO (08:23)
[2023-08-05] MEDS: chlorproMAZINE HCl 25 MG TABLET 50 MG PO ×3 (08:23→20:14)
[2023-08-05] MEDS: Multivitamin TABLET 1 TAB PO (08:23)
[2023-08-05] MEDS: Nicotine Polacrilex 2 MG GUM 4 MG BUCCAL ×4 (08:23→20:23)
[2023-08-05] MEDS: Thiamine HCL 100 MG TABLET PO (08:24)
[2023-08-05] MEDS: Famotidine 20 MG TABLET PO ×2 (08:24→20:14)
[2023-08-05] MEDS: Folic Acid 1 MG TABLET PO (08:24)
[2023-08-05] MEDS: Benztropine Mesylate 1 MG TABLET PO ×2 (08:24→20:14)
[2023-08-05] MEDS: Gabapentin 400 MG CAPSULE PO ×4 (08:24→20:14)
[2023-08-05] MEDS: Clotrimazole 1 % Cream 15 GM TUBE 1 APPL TOPICAL ×2 (08:25→20:13)
[2023-08-05] MEDS: Capsaicin 0.025% Cream 60 GM TUBE 1 APPL TOPICAL ×3 (08:25→20:13)
[2023-08-05] MEDS: Bacitracin Oint 14 GM TUBE 1 APPL TOPICAL (08:25)
--- NOTE | 2023-08-05 09:52 | HO.PSYCHPN ---
Subjective Subjective Date of Service: 08/05/23 Reason For Visit: Vomiting blood/SI Subjective Notes: Conditional Voluntary Healthcare Proxy: No Guardianship: No Medical Problems Affecting Mental Status: No Interim History: Pt making calls to rehab programs although difficult to find an open bed. He is still being considered for [facility] and he reports he is still considering this. 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 Medication Compliance: Yes Side effects from medications: No Attending Groups: Yes Review of Systems Acute medical concerns: No Medical Review of Systems: unchanged Review of Systems Review of Systems Yes all other systems are reviewed and are negative Mental Status Exam Mental Status Exam Patient Appearance: Appropriate Patient Orientation: Person, Place, Time and Situation Level of Consciousness: Alert Patient Behavior: Talkative and Good Eye Contact Mood Description: Sad and Apprehensive Affect Description: Flat Patient Cognition Impaired: No Ability to Follow Directions: Good Speech Pattern: Spontaneous Speech Memory Description: Intact Hallucinations: None Delusions: Not Present Thought Process: Rumination Thought Content: positive for Circumstantial, positive for Suicidal Ideation (denies) and positive for Homicidal Ideation (denies) Depressive Symptoms: Feelings of Worthlessness Judgement: Good Diagnostics Vital Signs (24Hr): Vital Signs - 24 hr 08/04/23 18:00 08/04/23 21:22 08/05/23 08:08 Temperature 97.3 F 98.4 F Pulse Rate 90 80 86 Respiratory Rate 16 16 Blood Pressure 138/92 H 128/77 116/73 Pulse Oximetry 98 98 Oxygen Delivery Method Room Air Room Air BMI result Body Mass Index 21.1 Labs 08/04/23 08:33 07/26/23 07:18 Labs: Laboratory Results - last 48 hr 08/04/23 08:33 WBC 7.9 RBC 4.51 L Hgb 14.8 Hct 42.8 MCV 94.9 MCH 32.8 MCHC 34.6 RDW 12.9 Plt Count 354 MPV 10.1 Immature Gran % (Auto) 0.4 Neut % (Auto) 54.9 Lymph % (Auto) 23.6 Anson % (Auto) 15.2 H Eos % (Auto) 4.5 H Baso % (Auto) 1.4 Lymph # (Auto) 1.9 Anson # (Auto) 1.2 Eos # (Auto) 0.4 Baso # (Auto) 0.1 Abs Immat Gran (auto) 0.03 Absolute Neuts (auto) 4.4 Absolute Nucleated RBC 0.000 Nucleated RBC % (auto) 0.0 Imaging Radiology Impressions: ITS Impressions Hand X-Ray 07/26/23 11:31 IMPRESSION: 1. No radiographic evidence of acute fracture. 2. Hardware across the fifth metacarpal are intact. Cervical Spine X-Ray 07/28/23 15:00 IMPRESSION: Subtle lucency involving the left aspect of the base of the odontoid process on the open mouth view. A nondisplaced fracture is not excluded. A cervical spine CT would provide for diagnostic assessment. Lumbar Spine X-Ray 07/28/23 15:00 IMPRESSION: 1. No acute bony abnormality. 2. Degenerative disc disease at L4-L5. 3. Slight retrolisthesis of L4 with respect to L5. Soft Tissue Neck X-Ray 07/28/23 15:00 IMPRESSION: 1. Question soft tissue swelling of the patient's chin. 2. No bony abnormality of the cervical spine. Head CT 07/28/23 15:20 IMPRESSION: No acute intracranial abnormality. Cervical Spine CT 07/29/23 10:09 IMPRESSION: Unremarkable cervical spine CT. Medications Medications Current Medications Al Hydroxide/Mg Hydroxide (Magnesium Hydrox/Alum Hydrox 30 Ml Oral.Susp) 30 ml PO Q6H PRN PRN Reason: Heartburn/Nausea Bacitracin (Bacitracin Oint 14 Gm Tube) 1 appl TOPICAL BID [facility]; Protocol Last Admin: 08/05/23 08:25 Dose: 1 appl Benztropine Mesylate (Benztropine Mesylate 1 Mg Tablet) 1 mg PO BID [facility] Last Admin: 08/05/23 08:24 Dose: 1 mg Capsaicin (Capsaicin 0.025% Cream 60 Gm Tube) 1 appl TOPICAL QID PRN; Protocol PRN Reason: pain in neck, back Last Admin: 08/05/23 08:25 Dose: 1 appl Chlorpromazine HCl (Chlorpromazine Hcl 25 Mg Tablet) 50 mg PO BID PRN PRN Reason: severe agitation,violence Last Admin: 08/03/23 23:35 Dose: 50 mg Chlorpromazine HCl (Chlorpromazine Hcl 25 Mg Tablet) 50 mg PO TID [facility] Last Admin: 08/05/23 08:23 Dose: 50 mg Clotrimazole (Clotrimazole 1 % Cream 15 Gm Tube) 1 appl TOPICAL BID [facility]; Protocol Last Admin: 08/05/23 08:25 Dose: 1 appl Famotidine (Famotidine 20 Mg Tablet) 20 mg PO BID [facility] Last Admin: 08/05/23 08:24 Dose: 20 mg Folic Acid (Folic Acid 1 Mg Tablet) 1 mg PO DAILY [facility] Last Admin: 08/05/23 08:24 Dose: 1 mg Gabapentin (Gabapentin 400 Mg Capsule) 400 mg PO QID [facility] Last Admin: 08/05/23 08:24 Dose: 400 mg Hydroxyzine HCl (Hydroxyzine Hcl 25 Mg Tablet) 25 mg PO Q6H PRN PRN Reason: Anxiety Last Admin: 08/05/23 04:41 Dose: 25 mg Ibuprofen (Ibuprofen 600 Mg Tablet) 600 mg PO Q4H PRN PRN Reason: Pain, Mild (Pain Scale 1-3) Last Admin: 08/05/23 08:23 Dose: 600 mg Lamotrigine (Lamotrigine 25 Mg Tablet) 50 mg PO BEDTIME [facility] Last Admin: 08/04/23 20:58 Dose: 50 mg Lidocaine (Lidocaine 4 % Patch Adh..Patch) 1 patch TRANSDERMA DAILY PRN; Protocol PRN Reason: back pain Last Admin: 08/04/23 08:20 Dose: 1 patch Lidocaine (Lidocaine 4 % Patch Adh..Patch) 1 patch TRANSDERMA DAILY [facility]; Protocol Last Admin: 08/05/23 08:24 Dose: Not Given Magnesium Hydroxide (Milk Of Magnesia 30 Ml Oral.Susp) 30 ml PO DAILY PRN PRN Reason: Constipation Multivitamins/Vitamin C (Multivitamin Tablet) 1 tab PO DAILY [facility] Last Admin: 08/05/23 08:23 Dose: 1 tab Naltrexone HCl (Naltrexone Hcl 50 Mg Tablet) 25 mg PO DAILY [facility] Last Admin: 08/05/23 08:23 Dose: 25 mg Nicotine (Nicotine 21 Mg Patch.Td24) 21 mg TRANSDERMA DAILY PRN PRN Reason: smoking cessation Last Admin: 08/05/23 08:22 Dose: 21 mg Nicotine Polacrilex (Nicotine Polacrilex 2 Mg Gum) 4 mg BUCCAL Q2H PRN PRN Reason: Nicotine Cravings Last Admin: 08/05/23 08:23 Dose: 4 mg Thiamine HCl (Thiamine Hcl 100 Mg Tablet) 100 mg PO DAILY [facility] Last Admin: 08/05/23 08:24 Dose: 100 mg Trazodone HCl (Trazodone Hcl 100 Mg Tablet) 100 mg PO BEDTIME [facility] Last Admin: 08/04/23 20:57 Dose: 100 mg Zinc Acetate/Diphenhydramine (Diphenhydramine Hcl 2 % Cream 28 Gm Tube) 1 appl TOPICAL QID PRN; Protocol PRN Reason: itching Last Admin: 08/04/23 11:00 Dose: 1 appl Allergies Allergies Allergy/AdvReac Type Severity Reaction Status Date / Time acetaminophen AdvReac Unknown Verified 07/26/23 03:50 Assessment & Plan Assessment & Plan (1) MDD (major depressive disorder), recurrent episode, moderate: Status: Acute Code(s): F33.1 - Major depressive disorder, recurrent, moderate (2) Cervicalgia: Status: Acute Code(s): M54.2 - Cervicalgia (3) Right hand pain: Status: Acute Code(s): M79.641 - Pain in right hand Plan Patient is a 43-year-old male with history of depression, alcohol abuse/dependence, who presents for making suicidal statement with a knife in the face of ongoing depression. 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 Patient was on the phone with his brother and niece and made a suicidal comment about cutting himself with scissors. His brother immediately drove up there to help him get treatment at a dual diagnosis program in [place], however upon arriving the bed was no longer available so patient came to the emergency room. He said while here, getting detoxed, he knew that he needed help or might do something unsafe. Patient reports history of hypomanic episodes that last for about 3 days during which time he needs almost no sleep, as talking faster, has lots of energy, spends lots of money he does not really have and on things he does not need and has elevated libido; he says he can only get himself to sleep by starting to drink heavily. Patient also has bouts of depression. Patient has some OCD type symptoms where he frequently counts different things that he sees; he says it can be distracting to conversations and is annoying but does not really limit his function all that much. Discussed diagnosis and possible bipolar disorder and patient agrees to trial of Lamictal as it can help with depression, anxiety, hypomania and OCD; discussed risks/side effects which patient understands and agrees to continue with this medicine. Also discussed gabapentin which he has been on before, for musculoskeletal pain as patient has chronic lower back and neck pain and this also can help with alcohol cravings. hospital course: 07/27 pt feeling better; mood better and says SI resolved. 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 aks if gabapentin can be increased in frequency. 07/28 Continue current plan and regime Reports insomnia- Increase Trazodone at hs to 100 mg Cervical/Lumbar xrays Consulted hospitalist regarding Hammar Toe, pt will need OP podiatry scheduled. 07/31/23 Decrease CPZ to 50 mg bid Benztropine 0.5 mg bid 08/01/23 Increase Gabapentin to 400 mg qid Capsaicin prn for neck and back pain Change timing of ibuprofen to q4h prn with food Increase Lamictal to 50 mg daily CBC, EKG 08/02 continue treatment plan 08/03/23 reduced PRN thorazine from 100mg bid prn to 50mg bid prn 08/04/23 Increase chlorpromazine to 50 mg tid Increase benztropine to 1 mg bid. Discontinue CIWA 08/05/23 Continue tx. Plan: CV Q 15 minute checks CIWA with Ativan p.r.n. Famotidine 20 mg b.i.d. for possible gastritis continue Lamictal 25 mg q.h.s. for combination of mood stability, depression, OCD, anxiety increase to gabapentin 300 mg q.i.d. for musculoskeletal pain and alcohol cravings Patient educated on: therapeutic strategies Informed Consent: understands Reason for continued inpatient stay Substantial Risk for: rapid decompensation Time Spent With Patient Time: Total time managing care of this patient today ____ minutes.
[2023-08-05 17:06] VITALS: BP 130/84; PULSE 77; RESP 16; TEMP 36.2; O2SAT 100
--- NOTE | 2023-08-05 18:28 | PC.NURSE ---
Assumed care of pt at 18:30. PT sitting in kitchen talking with other patients. Does not offer any complaints @ this time.
[2023-08-05] MEDS: diphenhydrAMINE HCl 2 % Cream 28 GM TUBE 1 APPL TOPICAL (20:12)
[2023-08-05] MEDS: traZODone HCL 100 MG TABLET PO (20:14)
[2023-08-05] MEDS: lamoTRIgine 25 MG TABLET 50 MG PO (20:14)
[2023-08-06] MEDS: Lidocaine 4 % Patch ADH..PATCH 1 PATCH TRANSDERMA ×2 (04:38→08:20)
[2023-08-06] MEDS: Ibuprofen 600 MG TABLET PO ×4 (04:38→20:10)
[2023-08-06] MEDS: chlorproMAZINE HCl 25 MG TABLET 50 MG PO ×5 (04:44→20:10)
[2023-08-06 06:00] VITALS: BP 123/79; PULSE 80; TEMP 36.2; O2SAT 99
[2023-08-06] MEDS: Naltrexone HCl 50 MG TABLET 25 MG PO (08:19)
[2023-08-06] MEDS: Folic Acid 1 MG TABLET PO (08:20)
[2023-08-06] MEDS: Nicotine 21 MG PATCH.TD24 TRANSDERMA (08:20)
[2023-08-06] MEDS: Benztropine Mesylate 1 MG TABLET PO ×2 (08:20→15:03)
[2023-08-06] MEDS: Thiamine HCL 100 MG TABLET PO (08:20)
[2023-08-06] MEDS: Multivitamin TABLET 1 TAB PO (08:20)
[2023-08-06] MEDS: Famotidine 20 MG TABLET PO ×2 (08:21→20:10)
[2023-08-06] MEDS: Nicotine Polacrilex 2 MG GUM 4 MG BUCCAL ×3 (08:21→20:11)
[2023-08-06] MEDS: Gabapentin 400 MG CAPSULE PO ×4 (08:21→20:10)
[2023-08-06] MEDS: Capsaicin 0.025% Cream 60 GM TUBE 1 APPL TOPICAL ×2 (13:06→17:28)
--- NOTE | 2023-08-06 13:30 | HO.PSYCHPN ---
Subjective Subjective Date of Service: 08/06/23 Reason For Visit: Vomiting blood/SI Subjective Notes: Conditional Voluntary Healthcare Proxy: No Guardianship: No Medical Problems Affecting Mental Status: No Interim History: Med review with [facility]. He continues to attempt to make contact with [employer]-He has considered [facility] as well and is leaving this option open. He is focused on his intermediate goal of re-enforcing his sobriety so he can be of greater assistance to his children. Reports feeling well. Medication Compliance: Yes Side effects from medications: No Attending Groups: Yes Review of Systems Acute medical concerns: No Medical Review of Systems: unchanged Review of Systems Review of Systems Yes all other systems are reviewed and are negative Mental Status Exam Mental Status Exam Patient Appearance: Appropriate Patient Orientation: Person, Place, Time and Situation Level of Consciousness: Alert Patient Behavior: Talkative and Good Eye Contact Mood Description: Apprehensive Affect Description: Flat Patient Cognition Impaired: No Ability to Follow Directions: Good Speech Pattern: Spontaneous Speech Memory Description: Intact Hallucinations: None Delusions: Not Present Thought Process: Rumination Thought Content: positive for Circumstantial, positive for Suicidal Ideation (denies) and positive for Homicidal Ideation (denies) Depressive Symptoms: Feelings of Worthlessness and Feelings of Guilt Judgement: Good Diagnostics Vital Signs (24Hr): Vital Signs - 24 hr 08/05/23 17:06 08/06/23 06:00 Temperature 97.2 F 97.2 F Pulse Rate 77 80 Respiratory Rate 16 Blood Pressure 130/84 123/79 Pulse Oximetry 100 99 Oxygen Delivery Method Room Air Room Air BMI result Body Mass Index 21.1 Labs 08/04/23 08:33 07/26/23 07:18 Imaging Radiology Impressions: ITS Impressions Hand X-Ray 07/26/23 11:31 IMPRESSION: 1. No radiographic evidence of acute fracture. 2. Hardware across the fifth metacarpal are intact. Cervical Spine X-Ray 07/28/23 15:00 IMPRESSION: Subtle lucency involving the left aspect of the base of the odontoid process on the open mouth view. A nondisplaced fracture is not excluded. A cervical spine CT would provide for diagnostic assessment. Lumbar Spine X-Ray 07/28/23 15:00 IMPRESSION: 1. No acute bony abnormality. 2. Degenerative disc disease at L4-L5. 3. Slight retrolisthesis of L4 with respect to L5. Soft Tissue Neck X-Ray 07/28/23 15:00 IMPRESSION: 1. Question soft tissue swelling of the patient's chin. 2. No bony abnormality of the cervical spine. Head CT 07/28/23 15:20 IMPRESSION: No acute intracranial abnormality. Cervical Spine CT 07/29/23 10:09 IMPRESSION: Unremarkable cervical spine CT. Medications Medications Current Medications Al Hydroxide/Mg Hydroxide (Magnesium Hydrox/Alum Hydrox 30 Ml Oral.Susp) 30 ml PO Q6H PRN PRN Reason: Heartburn/Nausea Bacitracin (Bacitracin Oint 14 Gm Tube) 1 appl TOPICAL BID [facility]; Protocol Last Admin: 08/06/23 09:27 Dose: Not Given Benztropine Mesylate (Benztropine Mesylate 1 Mg Tablet) 1 mg PO BID@0900,1500 [facility] Capsaicin (Capsaicin 0.025% Cream 60 Gm Tube) 1 appl TOPICAL QID PRN; Protocol PRN Reason: pain in neck, back Last Admin: 08/06/23 13:06 Dose: 1 appl Chlorpromazine HCl (Chlorpromazine Hcl 25 Mg Tablet) 50 mg PO BID PRN PRN Reason: severe agitation,violence Last Admin: 08/06/23 13:09 Dose: 50 mg Chlorpromazine HCl (Chlorpromazine Hcl 25 Mg Tablet) 50 mg PO TID [facility] Last Admin: 08/06/23 08:21 Dose: 50 mg Clotrimazole (Clotrimazole 1 % Cream 15 Gm Tube) 1 appl TOPICAL BID [facility]; Protocol Last Admin: 08/06/23 09:38 Dose: Not Given Famotidine (Famotidine 20 Mg Tablet) 20 mg PO BID [facility] Last Admin: 08/06/23 08:21 Dose: 20 mg Folic Acid (Folic Acid 1 Mg Tablet) 1 mg PO DAILY [facility] Last Admin: 08/06/23 08:20 Dose: 1 mg Gabapentin (Gabapentin 400 Mg Capsule) 400 mg PO QID [facility] Last Admin: 08/06/23 13:06 Dose: 400 mg Hydroxyzine HCl (Hydroxyzine Hcl 25 Mg Tablet) 25 mg PO Q6H PRN PRN Reason: Anxiety Last Admin: 08/05/23 11:14 Dose: 25 mg Ibuprofen (Ibuprofen 600 Mg Tablet) 600 mg PO Q4H PRN PRN Reason: Pain, Mild (Pain Scale 1-3) Last Admin: 08/06/23 13:10 Dose: 600 mg Lamotrigine (Lamotrigine 25 Mg Tablet) 50 mg PO BEDTIME [facility] Last Admin: 08/05/23 20:14 Dose: 50 mg Lidocaine (Lidocaine 4 % Patch Adh..Patch) 2 patch TRANSDERMA DAILY [facility]; Protocol Magnesium Hydroxide (Milk Of Magnesia 30 Ml Oral.Susp) 30 ml PO DAILY PRN PRN Reason: Constipation Multivitamins/Vitamin C (Multivitamin Tablet) 1 tab PO DAILY [facility] Last Admin: 08/06/23 08:20 Dose: 1 tab Naltrexone HCl (Naltrexone Hcl 50 Mg Tablet) 25 mg PO DAILY [facility] Last Admin: 08/06/23 08:19 Dose: 25 mg Nicotine (Nicotine 21 Mg Patch.Td24) 21 mg TRANSDERMA DAILY PRN PRN Reason: smoking cessation Last Admin: 08/06/23 08:20 Dose: 21 mg Nicotine Polacrilex (Nicotine Polacrilex 2 Mg Gum) 4 mg BUCCAL Q2H PRN PRN Reason: Nicotine Cravings Last Admin: 08/06/23 13:12 Dose: 4 mg Thiamine HCl (Thiamine Hcl 100 Mg Tablet) 100 mg PO DAILY [facility] Last Admin: 08/06/23 08:20 Dose: 100 mg Trazodone HCl (Trazodone Hcl 100 Mg Tablet) 100 mg PO BEDTIME [facility] Last Admin: 08/05/23 20:14 Dose: 100 mg Zinc Acetate/Diphenhydramine (Diphenhydramine Hcl 2 % Cream 28 Gm Tube) 1 appl TOPICAL QID PRN; Protocol PRN Reason: itching Last Admin: 08/05/23 20:12 Dose: 1 appl Allergies Allergies Allergy/AdvReac Type Severity Reaction Status Date / Time acetaminophen AdvReac Unknown Verified 07/26/23 03:50 Assessment & Plan Assessment & Plan (1) MDD (major depressive disorder), recurrent episode, moderate: Status: Acute Code(s): F33.1 - Major depressive disorder, recurrent, moderate (2) Cervicalgia: Status: Acute Code(s): M54.2 - Cervicalgia (3) Right hand pain: Status: Acute Code(s): M79.641 - Pain in right hand Plan Patient is a 43-year-old male with history of depression, alcohol abuse/dependence, who presents for making suicidal statement with a knife in the face of ongoing depression. 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 Patient was on the phone with his brother and niece and made a suicidal comment about cutting himself with scissors. His brother immediately drove up there to help him get treatment at a dual diagnosis program in [place], however upon arriving the bed was no longer available so patient came to the emergency room. He said while here, getting detoxed, he knew that he needed help or might do something unsafe. Patient reports history of hypomanic episodes that last for about 3 days during which time he needs almost no sleep, as talking faster, has lots of energy, spends lots of money he does not really have and on things he does not need and has elevated libido; he says he can only get himself to sleep by starting to drink heavily. Patient also has bouts of depression. Patient has some OCD type symptoms where he frequently counts different things that he sees; he says it can be distracting to conversations and is annoying but does not really limit his function all that much. Discussed diagnosis and possible bipolar disorder and patient agrees to trial of Lamictal as it can help with depression, anxiety, hypomania and OCD; discussed risks/side effects which patient understands and agrees to continue with this medicine. Also discussed gabapentin which he has been on before, for musculoskeletal pain as patient has chronic lower back and neck pain and this also can help with alcohol cravings. hospital course: 07/27 pt feeling better; mood better and says SI resolved. 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 aks if gabapentin can be increased in frequency. 07/28 Continue current plan and regime Reports insomnia- Increase Trazodone at hs to 100 mg Cervical/Lumbar xrays Consulted hospitalist regarding Hammar Toe, pt will need OP podiatry scheduled. 07/31/23 Decrease CPZ to 50 mg bid Benztropine 0.5 mg bid 08/01/23 Increase Gabapentin to 400 mg qid Capsaicin prn for neck and back pain Change timing of ibuprofen to q4h prn with food Increase Lamictal to 50 mg daily CBC, EKG 08/02 continue treatment plan 08/03/23 reduced PRN thorazine from 100mg bid prn to 50mg bid prn 08/04/23 Increase chlorpromazine to 50 mg tid Increase benztropine to 1 mg bid. Discontinue CIWA 08/05/23 Continue tx. 08/06/23 Continue tx. Plan: CV Q 15 minute checks CIWA with Ativan p.r.n. Famotidine 20 mg b.i.d. for possible gastritis continue Lamictal 25 mg q.h.s. for combination of mood stability, depression, OCD, anxiety increase to gabapentin 300 mg q.i.d. for musculoskeletal pain and alcohol cravings Patient educated on: medication risk/benefits and therapeutic strategies Informed Consent: understands Reason for continued inpatient stay Substantial Risk for: rapid decompensation Time Spent With Patient Time: Total time managing care of this patient today ____ minutes.
[2023-08-06 18:00] VITALS: BP 133/76; PULSE 86; RESP 16; TEMP 36.3; O2SAT 99
[2023-08-06] MEDS: traZODone HCL 100 MG TABLET PO (20:10)
[2023-08-06] MEDS: lamoTRIgine 25 MG TABLET 50 MG PO (20:10)
[2023-08-06] MEDS: hydrOXYzine HCL 25 MG TABLET PO (20:10)
[2023-08-07] MEDS: Ibuprofen 600 MG TABLET PO (06:11)
[2023-08-07] MEDS: chlorproMAZINE HCl 25 MG TABLET 50 MG PO ×2 (06:11→08:07)
[2023-08-07] MEDS: Nicotine Polacrilex 2 MG GUM 4 MG BUCCAL ×2 (06:13→08:10)
[2023-08-07] MEDS: Famotidine 20 MG TABLET PO (08:07)
[2023-08-07] MEDS: Thiamine HCL 100 MG TABLET PO (08:08)
[2023-08-07] MEDS: Folic Acid 1 MG TABLET PO (08:08)
[2023-08-07] MEDS: Multivitamin TABLET 1 TAB PO (08:08)
[2023-08-07] MEDS: Gabapentin 400 MG CAPSULE PO (08:08)
[2023-08-07] MEDS: Naltrexone HCl 50 MG TABLET 25 MG PO (08:08)
[2023-08-07] MEDS: Benztropine Mesylate 1 MG TABLET PO (08:08)
[2023-08-07 08:11] VITALS: BP 120/84; PULSE 110; RESP 18; TEMP 36.6; O2SAT 98
[2023-08-07] MEDS: Nicotine 21 MG PATCH.TD24 TRANSDERMA (09:24)
[2023-08-07] MEDS: Lidocaine 4 % Patch ADH..PATCH 2 PATCH TRANSDERMA (09:26)
[2023-08-07] MEDS: hydrOXYzine HCL 25 MG TABLET PO (10:37)
--- NOTE | 2023-08-07 17:19 | P.DS_ITS ---
DS: Providers Provider Date of Service: 08/07/23 Date of admission: 07/26/23 03:14 Date of discharge: 08/07/23 Primary care physician: Unknown Physician Admitting clinician: Bubba Marino Attending physician on admission: Bubba Marino Consults: 07/25/23 22:35 Consult to Hospitalist Routine Comment: Consulting Provider: Hospitalist Reason For Exam: admission physical 07/30/23 05:29 Addiction Medicine Routine Consulting Provider: Addiction Covering Reason for consultation: Review of resources for skilled nursing rx Has provider been notified: No Attending physician on discharge: Troy Osborne Discharging clinician: Bozena Whiteside DS: Diagnosis Discharge Diagnosis (1) MDD (major depressive disorder), recurrent episode, moderate: Status: Acute (2) Cervicalgia: Status: Inactive (3) Right hand pain: Status: Inactive DS: Medications Discharge Medications Home Medications: Home Medications Medication Instructions Recorded Confirmed No Known Home Meds 07/26/23 07/26/23 Previous Rx's Medication Instructions Recorded benztropine 1 mg tablet 1 mg PO BID@0900,1500 #14 tabs 08/07/23 chlorpromazine 25 mg tablet 50 mg (2 x 25 mg) PO TID #21 tabs 08/07/23 famotidine 20 mg tablet 20 mg PO BID #14 tabs 08/07/23 folic acid 1 mg tablet 1 mg PO DAILY #30 tabs 08/07/23 gabapentin 400 mg capsule 400 mg PO QID #21 caps 08/07/23 lamotrigine 25 mg tablet 50 mg (2 x 25 mg) PO BEDTIME #7 08/07/23 tabs multivitamin (Daily-Aracely tablet) 1 tab PO DAILY #3 tabs 08/07/23 naltrexone 50 mg tablet 25 mg (1/2 x 50 mg) PO DAILY #7 08/07/23 tabs nicotine (polacrilex) 2 mg gum 4 mg buccal Q2H PRN Nicotine 08/07/23 Cravings #60 ea nicotine 21 mg/24 hr daily 21 mg transdermal DAILY PRN 08/07/23 transdermal patch smoking cessation #30 ea thiamine mononitrate (vit B1) 100 100 mg PO DAILY #30 tabs 08/07/23 mg tablet Mental Status Exam Mental Status Exam Patient Appearance: Appropriate Patient Orientation: Person, Place, Time and Situation Level of Consciousness: Alert Patient Behavior: Talkative and Good Eye Contact Mood Description: Apprehensive Affect Description: Flat Patient Cognition Impaired: No Ability to Follow Directions: Good Speech Pattern: Spontaneous Speech Memory Description: Intact Hallucinations: None Delusions: Not Present Thought Process: Rumination Thought Content: positive for Circumstantial, positive for Suicidal Ideation (denies) and positive for Homicidal Ideation (denies) Depressive Symptoms: Feelings of Worthlessness and Feelings of Guilt Judgement: Good Data Data Completed and Pending Completed studies during hospitalization [Text1]: 08/04/23 08:33 WBC 7.9 RBC 4.51 L Hgb 14.8 Hct 42.8 MCV 94.9 MCH 32.8 MCHC 34.6 RDW 12.9 Plt Count 354 MPV 10.1 Immature Gran % (Auto) 0.4 Neut % (Auto) 54.9 Lymph % (Auto) 23.6 Kings % (Auto) 15.2 H Eos % (Auto) 4.5 H Baso % (Auto) 1.4 Lymph # (Auto) 1.9 Kings # (Auto) 1.2 Eos # (Auto) 0.4 Baso # (Auto) 0.1 Abs Immat Gran (auto) 0.03 Absolute Neuts (auto) 4.4 Absolute Nucleated RBC 0.000 Nucleated RBC % (auto) 0.0 Imaging Diagnostic Imaging Impressions Hand X-Ray 07/26/23 11:31 IMPRESSION: 1. No radiographic evidence of acute fracture. 2. Hardware across the fifth metacarpal are intact. Cervical Spine X-Ray 07/28/23 15:00 IMPRESSION: Subtle lucency involving the left aspect of the base of the odontoid process on the open mouth view. A nondisplaced fracture is not excluded. A cervical spine CT would provide for diagnostic assessment. Lumbar Spine X-Ray 07/28/23 15:00 IMPRESSION: 1. No acute bony abnormality. 2. Degenerative disc disease at L4-L5. 3. Slight retrolisthesis of L4 with respect to L5. Soft Tissue Neck X-Ray 07/28/23 15:00 IMPRESSION: 1. Question soft tissue swelling of the patient's chin. 2. No bony abnormality of the cervical spine. Head CT 07/28/23 15:20 IMPRESSION: No acute intracranial abnormality. Cervical Spine CT 07/29/23 10:09 IMPRESSION: Unremarkable cervical spine CT. DS: Summary Hospital Course Hospital Course: Admission to adult psychiatry for exacerbation of major depression, alcohol use disorder. Pt reported SI prior to admission as pt was homeless, from [place], staying and working in [place], drinking heavily. Medications were evaluated and adjusted. Pt was able to integrate into the milieu and benefit from education and support in learning coping skills. Pt accessed several contacts and family members during hospitalization. He chose to continue a CSS search upon discharge as our available resources did not meet his current needs. He has a intermediate manager plan of CSS admission, TSS admission and return to [place] to be closer to his children and participate in their care. Status at Discharge Functional status at discharge: independent ambulation Overall status at discharge: patient is back to baseline Time Spent with Patient Time attestation: Total time managing care of this patient today ____ minutes. Time spent: Less than 30 minutes Discharge Plan Discharge Anticipated Discharge Date/Time: 08/07/23 12:00 Patient Disposition: Home, Self-Care Discharge Diagnosis: Recurrent Major Depression Alcohol Use Disorder Referrals: [facility] [Other] - 1 Week (Call daily.) Physician,Unknown J [Primary Care Provider] - 1 Week Discharge Medications: New multivitamin [Daily-Aracely] Tablet 1 tab PO DAILY Qty: 3 0RF nicotine (polacrilex) 2 mg Gum 4 mg buccal Q2H PRN (Reason: Nicotine Cravings) Qty: 60 0RF naltrexone 50 mg Tablet 25 mg PO DAILY Qty: 7 0RF gabapentin 400 mg Capsule 400 mg PO QID Qty: 21 0RF lamotrigine 25 mg Tablet 50 mg PO BEDTIME Qty: 7 0RF famotidine 20 mg Tablet 20 mg PO BID Qty: 14 0RF chlorpromazine 25 mg Tablet 50 mg PO TID Qty: 21 0RF benztropine 1 mg Tablet 1 mg PO BID@0900,1500 Qty: 14 0RF nicotine 21 mg/24 hr Patch 24 Hour 21 mg transdermal DAILY PRN (Reason: smoking cessation) Qty: 30 0RF folic acid 1 mg Tablet 1 mg PO DAILY Qty: 30 0RF thiamine mononitrate (vit B1) 100 mg Tablet 100 mg PO DAILY Qty: 30 0RF No Action No Known Home Meds Discharge Orders: Discharge Order (Routine); Ordered 08/07/23 Ordered By: Bozena Whiteside Diet: Advance to usual diet Activity on Discharge: As tolerated Stand Alone Forms: Patient Portal Discharge page, Community Support Care Plan Goals: Work on Sobriety Mood and Behavioral Stabilization Health Concerns: Sobriety Mood and Behavioral Stabilization Plan of Treatment: Casa has been working with outside contacts and family to choose a CSS he feels is appropriate. He will continue this effort upon discharge and make choices for out patient services based upon CSS choice. The team has made applications with him for CSS, without acceptance. He is not interested in correction referrals Assessment: Scheduled discharge. Discharge Date/Time: 08/07/23 11:02
== END 2023-08-07 11:02 | disposition home or self-care (01) | DRG 751 ==
PROVIDERS: Psychiatry & Neurology Psychiatry; Visit Provider Clinical Nurse Specialist Psychiatric/Mental Health, Adult
DX: F33.1 Major depressive disorder, recurrent, moderate (principal); R45.851 Suicidal ideations; F43.10 Post-traumatic stress disorder, unspecified; F10.20 Alcohol dependence, uncomplicated; M79.641 Pain in right hand; M54.2 Cervicalgia; F41.9 Anxiety disorder, unspecified; F17.210 Nicotine dependence, cigarettes, uncomplicated; Z71.6 Tobacco abuse counseling; Z79.899 Other long term (current) drug therapy
CPT/HCPCS: 36415; 70360; 70450; 72050; 72100; 72125; 73120; 80053; 80076; 85025; 93005

== ENCOUNTER 2023-07-26 03:14 | Outpatient (BNV) | payer OTHER, SELFPAY | END 2023-08-01 18:46 | PROVIDERS: Visit Provider Internal Medicine Cardiovascular Disease | DX: F33.1 Major depressive disorder, recurrent, moderate (principal) | CPT/HCPCS: 93010 ==

== ENCOUNTER → 2023-07-26 03:14 | Outpatient (BNV) | payer MEDICAID, SELFPAY | PROVIDERS: Visit Provider Physician Assistant Medical | DX: M54.2 Cervicalgia (principal); M79.641 Pain in right hand; Z59.00 Homelessness unspecified | CPT/HCPCS: 99222 ==

== ENCOUNTER → 2023-07-26 03:14 | Outpatient (BNV) | payer MEDICAID, OTHER, SELFPAY | PROVIDERS: Visit Provider Psychiatry & Neurology Psychiatry | DX: F33.1 Major depressive disorder, recurrent, moderate (principal); M54.2 Cervicalgia; M79.641 Pain in right hand | CPT/HCPCS: 99222; 99231; 99232; 99238 ==